=== PATIENT | female | born 1990 | race Caucasian/White ===

== ENCOUNTER 2016-07-15 11:36 | Outpatient (CLI) | payer BC ==
[2016-07-15 12:03] LABS: APPEARANCE,URINE SLIGHTLY-CLOUDY; BILIRUBIN,URINE NEGATIVE (NEGATIVE); GLUCOSE, URINE NEGATIVE (NEGATIVE); KETONES,URINE TRACE mg/dL (NEGATIVE); LEUKOCYTE ESTERASE,URINE NEGATIVE (NEGATIVE); NITRITE,URINE NEGATIVE (NEGATIVE); PROTEIN,URINE NEGATIVE (NEGATIVE); URINE SPECIFIC GRAVITY 1.023; UROBILINOGEN,URINE NEGATIVE mg/dL (<2.0)
[2016-07-15 12:06] LABS: AMNISURE (ROM) NEGATIVE (NEGATIVE)
[2016-07-15 12:16] LABS: URINE BARBITURATES SCREEN NEGATIVE; URINE METHADONE SCREEN NEGATIVE; URINE OPIATES LOW NEGATIVE; URINE PHENCYCLIDINE SCREEN NEGATIVE
--- NOTE | 2016-07-21 11:59 | Antepartum Discharge Summary ---
Antepartum DC Datetime Report Generated by CPN: 07/21/2016 11:58 DIET/ACTIVITY/RESTRICTIONS Diet: Regular (07/15/2016 12:53:BRAYDON Egan) TEACHING/INSTRUCTIONS/REFERRALS Instructions Understood: Patient Verbalized Understanding; Support Person Verbalized Understanding (07/15/2016 12:53:BRAYDON Egan) Referrals: None (07/15/2016 12:53:BRAYDON Egan) Educational Materials- Other: Care notes reviewed for dehydration (07/15/2016 12:53:Alda Camp, RNC) DISCHARGE INFORMATION Discharge Date/Time: 07/15/2016 12:53 (07/15/2016 12:53:Alda Camp, RNC) Discharged To: Home (07/15/2016 12:53:Alda Camp, RNC) Discharge Provider Name: Cece Shipman CNM (07/15/2016 12:53:Alda Camp, RNC) Accompanied By: FOB (07/15/2016 12:53:Alda Camp, RNC) Discharge Method: Ambulatory (07/15/2016 12:53:Alda Camp, RNC) Condition: Stable (07/15/2016 12:53:Alda Camp, RNC) FOLLOW UP INFORMATION Follow Up With: [facility] (07/15/2016 12:53:Alda Camp, RNC) Follow Up On: As Scheduled (07/15/2016 12:53:Alda Camp, RNC) Follow Up Phone Number: [facility] - (07/15/2016 12:53:Alda Camp, RNC) GENERAL INSTR-CALL PROVIDER IF: Pressure: Pressure in your vagina or lower abdomen that may feel like the baby is pushing down (07/15/2016 12:53:BRAYDON Egan) Period Like Cramps: Period-like cramps or low dull backache that may come and go (07/15/2016 12:53:BRAYDON Egan) Cramps/Diarrhea: Abdominal cramps that may be accompanied by diarrhea (07/15/2016 12:53:BRAYDON Egan) Gush of Fluid/Blood: Gush of fluid or blood from your vagina (it is normal to have spotting after vaginal exam or intercourse) (07/15/2016 12:53:BRAYDON Egan) Vaginal Discharge: Change in the type or amount of vaginal discharge (07/15/2016 12:53:BRAYDON Egan) Temperature: Temperature greater than 100.0(F) orally (07/15/2016 12:53:BRAYDON Egan)
--- NOTE | 2016-07-21 12:37 | L&D Flow Sheet ---
LD Flowsheet Datetime Report Generated by CPN: 07/21/2016 12:37 Datetime: 07/15/2016 12:48 Pain Pain Scale: 0 (Alda Camp, RNC) Pain Presence: None/Denies (Alda Camp, RNC) Pain Type: N/A (Alda Camp, RNC) Pain Assessment Comments: denies pain on discharge (Alda Camp, RNC) LaborFlag: Labor (QS system process) Datetime: 07/15/2016 12:33 Patient Care Patient Care Comments: EFM off will discharge to home after po hydration is complete (Alda Camp, RNC) Datetime: 07/15/2016 12:30 Contraction Comments: sitting up and eating/drinking denies uterine cramping or contractions. (Alda Camp, RNC) Datetime: 07/15/2016 12:28 NBP Sys/Mabel/Mean (mmHg): 106 (QS system process) : 62 (QS system process) : 77 (QS system process) Pulse: 95 (QS system process) Respirations: 20 (Alda [place], RN) Temperature (F): 98.2 ([facility], [facility]) Temperature (C): 36.8 (QS system process) LaborFlag: Labor (QS system process) Datetime: 07/15/2016 12:27 Teaching Instructional Method: Verbal; Patient Instructed; Verbalized Understanding ([facility], [facility]) Related: Nutrition; Hydration ([facility]) Teaching Comments: Reviewed importance of adequate hydration and nutrition. Instructed to drink a minimum of 3 [place] pitchers of water using her urine color as a quide to increase po intake. Discussed importance of frequent small healthy meals every three to four hours up to 6 daily. Denied questions or concerns , verbalized understanding (Alda Camp, RNC) Datetime: 07/15/2016 12:22 Uterine Activity Monitor Mode: External (Alda Camp, RNC) Frequency (min): none (Alda Camp, RNC) Resting Tone (Palpate): Relaxed (Alda Camp, RNC) Communication Communication Comments: P Umberto CNM on unit given verbal report of arrival, complaint of leaking , UA results showing spec gravity 1.023 with trace ketones. Plan discussed and orders received to for discharge after pt drinks one [place] pitcher of water and finishes her popsicle. (Alda Camp, RNC) Datetime: 07/15/2016 12:18 Patient Care Patient Care Comments: sitting up to drink (Alda Camp, RNC) Datetime: 07/15/2016 12:04 Frequency (min): denies (Alda Camp, RNC) Resting Tone (Palpate): Relaxed (Annotations: Abdomen soft and nontender) (Alda Camp, RNC) Pain Pain Scale: 0 (Alda Camp, RNC) Pain Presence: None/Denies (Alda Camp, RNC) Pain Type: N/A (Alda Camp, RNC) Pain Assessment Comments: denies pain on arrival (Alda Camp, RNC) Vaginal Exam Exam by: Had cervical length at office today prior to arrival (Alda Camp, RNC) Membrane Status: Intact (Alda Camp, RNC) Vaginal Bleeding: None (Alda Camp, RNC) Maternal Assessment Level of Consciousness: Fully Conscious (Alda Camp, RNC) DTR's/Clonus: DTRs 2+; No Clonus (Alda Camp, RNC) Headache: Denies (Alda Camp, RNC) Breath Sounds, Left: Clear and Equal (Alda Camp, RNC) Breath Sounds, Right: Clear and Equal (Alda Camp, RNC) Nausea/Vomiting: Denies (Alda Camp, RNC) RUQ Epigastric Pain: Denies (Alda Camp, RNC) LaborFlag: Labor (QS system process) Datetime: 07/15/2016 12:00 Comments: continuous tracing discontinued secondary to extreme prematurity per policy. Continuous toco placed and remains (Alda Camp, RNC) Datetime: 07/15/2016 11:58 NBP Sys/Mabel/Mean (mmHg): 112 (QS system process) : 65 (QS system process) : 82 (QS system process) Pulse: 105 (QS system process) Assessment A Monitor Mode: External US; Auscultation (Alda Camp, RNC) FHR Baseline Rate : 150 (Alda Camp, RNC) LaborFlag: Labor (QS system process) Datetime: 07/15/2016 11:57 Teaching Instructional Method: Demo; Verbal; Patient Instructed; Family/Support Person Instructed; Verbalized Understanding (Alda Camp, RNC) Plan of Care: Plan of Care Discussed (Alda Camp, RNC) Unit Routine: [place] to Room; Call Mejia; Bed (Alda Camp, RNC) Related: Hydration (Alda Camp, RNC) Teaching Comments: POC for labor check and amnisure process and technique reviewed. (Alda Camp, RNC) Datetime: 07/15/2016 11:56 Patient Care Patient Care Comments: amnisure collected and sent. No obvious vaginal leaking noted (Alda Camp, RNC) Datetime: 07/15/2016 11:40 Vital Signs Stage of : Labor (Alda [place], [facility])
--- NOTE | 2016-07-21 12:37 | L&D General Admission ---
General Admit Datetime Report Generated by CPN: 07/21/2016 12:37 INFORMATION Patient Age: 25 (07/15/2016 11:36:QS system process) EDC: 10/20/2016 00:00 (07/15/2016 11:55:BRAYDON Egan) : 2 (07/15/2016 11:55:BRAYDON Egan) Para: 1 (07/15/2016 11:55:BRAYDON Egan) Term: 0 (07/15/2016 11:55:BRAYDON Egan) : 1 (07/15/2016 11:55:BRAYDON Egan) Spontaneous Abortions: 0 (07/15/2016 11:55:BRAYDON Egan) Induced Abortions: 0 (07/15/2016 11:55:BRAYDON Egan) Livin (07/15/2016 11:55:BRAYDON Egan) Cesareans: 0 (07/15/2016 11:55:BRAYDON Egan) VBACs: 0 (07/15/2016 11:55:BRAYDON Egan) Ectopic: 0 (07/15/2016 11:55:Alda Kenton [facility]) Multiple Births: 0 (07/15/2016 11:55:Alda Kenton [facility]) Baby, Number in Womb: 1 (07/15/2016 11:55:Alda Pulido [facility]) CARE Primary Education Program Associate: [facility] (07/15/2016 11:55:Alda Pulido [facility]) Month of 1st Visit: April (07/15/2016 11:55:Alda Pulido [facility]) Adequate Care: Yes (07/15/2016 11:55:Alda Kenton [facility]) Prepregnancy Weight (lb): 202 (07/15/2016 11:55:Alda Pulido [facility]) Prepregnancy Weight (kg): 91.8 (07/15/2016 11:55:QS system process) Height (in): 61 (07/15/2016 11:54:QS system process) ALLERGIES Medication Allergy: No (07/15/2016 11:55:Alda Pulido RNC) Medication Allergies: No Known Allergies (07/15/2016) (07/15/2016 11:54:QS system process) Medication Allergies: No Known Allergies (12/16/2014) (07/15/2016 11:36:QS system process) Latex Allergy: No Latex Allergies (07/15/2016 11:55:Alda Camp, RNC) COMMUNICATION Primary Language: Dutch (07/15/2016 11:55:Alda Pulido, RNC) Medical Tx Preferred Language: Dutch (07/15/2016 11:55:Alda Camp, RNC) Communication Barrier(s): None (07/15/2016 11:55:Alda Camp, RNC) DEMOGRAPHICS Address: [address] [place] [id number] (07/15/2016 11:36:QS system process) Zipcode: [address] (07/15/2016 11:36:QS system process) Home (07/15/2016 11:36:QS system process) SSN: [id number] (07/15/2016 11:36:QS system process) Next of Kin Name: ZANDER UNGER (07/15/2016 11:36:QS system process) Next of Kin (07/15/2016 11:36:QS system process) Next of Kin Relationship: OR (07/15/2016 11:36:QS system process) Date of : 1990 (07/15/2016 11:36:QS system process) Marital Status: Single (07/15/2016 11:36:QS system process) Sex: Female (07/15/2016 11:36:QS system process) Occupation: Other (07/15/2016 11:55:Alda Pulido RN) 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 [id number] (07/15/2016 11:55:BRAYDON Egan) Marijuana: No (07/15/2016 11:55:BRAYDON Egan) Cocaine: No (07/15/2016 11:55:Alda Camp, [facility]) Other Illicit Drugs: No (07/15/2016 11:55:[facility], [facility]) VACCINE HISTORY Influenza Vaccine: No (07/15/2016 11:55:Alda Camp, [facility]) Pneumococcal Vaccine: No (07/15/2016 11:55:[facility], [facility]) Tetanus Vaccine: No (07/15/2016 11:55:[facility], [facility]) Tdap Vaccine: No (07/15/2016 11:55:[facility], [facility]) Hepatitis B Vaccine: Yes (07/15/2016 11:55:[facility], [facility]) Hepatitis B Vaccine Date : middle school (07/15/2016 11:55:[facility], [facility]) Rake Operator: [facility] (07/15/2016 11:55:[facility], [facility]) Feeding Preference: Formula (07/15/2016 11:55:[facility], [facility]) Circumcision: Yes (07/15/2016 11:55:[facility]) Classes Attended: No (07/15/2016 11:55:BRAYDON Egan) Tubal Ligation: No (07/15/2016 11:55:BRAYDON Egan) Tubal Authorization Signed: N/A (07/15/2016 11:55:BRAYDON Egan) Consent: N/A (07/15/2016 11:55:BRAYDON Egan) Consent Signed: N/A (07/15/2016 11:55:BRAYDON Egan) Pain Management Plans: Natural (07/15/2016 11:55:BRAYDON Egan) Plans for Labor and Delivery: None (07/15/2016 11:55:BRAYDON Egan) Support Person: Zander Unger (07/15/2016 11:55:BRAYDON Egan) Support Person Relationship: Significant Other (07/15/2016 11:55:BRAYDON Egan) Other Relationship: FOB (07/15/2016 11:55:BRAYDON Egan) Cultural/Spritual Practice: No (07/15/2016 11:55:BRAYDON Egan) Spir/Cult Dietary Needs: No (07/15/2016 11:55:BRAYDON Egan) LIVING SITUATION/DISCHARGE PLAN Living Arrangements: Mobile Home (07/15/2016 11:55:BRAYDON Egan) Adequate Access to:: Electric; Heat; Refrigeration; Plumbing/Running water; Phone; Transportation (07/15/2016 11:55:BRAYDON Egan) WIC Program: Yes (07/15/2016 11:55:BRAYDON Egan) Discharge Comb Machine Operator Person: Zander Unger (07/15/2016 11:55:BRAYDON Egan) Person to Help after Discharge: Zander Unger (07/15/2016 11:55:BRAYDON Egan) Currently Using Commun Resources: Yes (07/15/2016 11:55:BRAYDON Egan) Specify Current Resource Used: medicaid and wic (07/15/2016 11:55:BRAYDON Egan) Outside Agency/Charter Pilot: Yes (07/15/2016 11:55:BRAYDON Egan) Car Seat for Discharge: Yes (07/15/2016 11:55:BRAYDON Egan) Adoption Requested: No (07/15/2016 11:55:BRAYDON Egan) Pt Contact w/ Post : N/A (07/15/2016 11:55:BRAYDON Egan) LABS Blood Type: A Negative (07/15/2016 11:55:Alda Pulido [facility]) Antibody Screen: negative (07/15/2016 11:55:Alda Pulido Ivan) RPR/VDRL: Nonreactive (07/15/2016 11:55:Alda Pulido [facility]) HIV Exposure Test: Negative (07/15/2016 11:55:Alda Pulido [facility]) Rubella: Immune (07/15/2016 11:55:Alda Pulido [facility]) OB/PREVIOUS HISTORY Previous Procedures: Ultrasound (07/15/2016 11:55:BRAYDON Egan) Current Procedures: Ultrasound (07/15/2016 11:55:BRAYDON Egan) History of Previous : No (07/15/2016 11:55:BRAYDON Egan) History of Gestational Diabetes: Yes (07/15/2016 11:55:BRAYDON Egan) History of PIH: No (07/15/2016 11:55:BRAYDON Egan) History of Incompetent Cervix: No (07/15/2016 11:55:BRAYDON Egan) History of Placenta Previa/Abrup: No (07/15/2016 11:55:BRAYDON Egan) History of Macrosomia: No (07/15/2016 11:55:BRAYDON Egan) History of IUGR: No (07/15/2016 11:55:BRAYDON Egan) History of Hemorrhage: No (07/15/2016 11:55:BRAYDON Egan) History of Loss/Stillborn: No (07/15/2016 11:55:BRAYDON Egan) History of : No (07/15/2016 11:55:BRAYDON Egan) History of D (Rh) Sensitization: No (07/15/2016 11:55:BRAYDON Egan) History Recurrent Loss/Stillborn: No (07/15/2016 11:55:BRAYDON Egan) History Depression/PP Depression: No (07/15/2016 11:55:BRAYDON Egan) History of Uterine Anomaly/RAIN: No (07/15/2016 11:55:BRAYDON Egan) History of Infertility: No (07/15/2016 11:55:BRAYDON Egan) History of ART Treatment: No (07/15/2016 11:55:BRAYDON Egan) History of RAIN: No (07/15/2016 11:55:BRAYDON Egan) Comments Obstetrical History: G1- delivered 35 weeks GDM G2- GDM (07/15/2016 11:55:BRAYDON Egan) MEDICAL HISTORY Med Hx Diabetes: No (07/15/2016 11:55:BRAYDON Egan) Diabetes Type: Gestational Diabetes (07/15/2016 11:55:BRAYDON Egan) Med Hx Hypertension: No (07/15/2016 11:55:BRAYDON Egan) Med Hx Heart Disease: No (07/15/2016 11:55:BRAYDON Egan) Med Hx Autoimmune Disorder: No (07/15/2016 11:55:BRAYDON Egan) Med Hx Kidney Disease/UTI: No (07/15/2016 11:55:BRAYDON Egan) Med Hx Neurologic/Epilepsy: No (07/15/2016 11:55:BRAYDON Egan) Med Hx Psychiatric Disorders: Yes (07/15/2016 11:55:BRAYDON Egan) Med Hx Hepatitis/Liver Disease: No (07/15/2016 11:55:BRAYDON Egan) Med Hx Varicosities/Phlebitis: No (07/15/2016 11:55:BRAYDON Egan) Med Hx Thyroid Dysfunction: No (07/15/2016 11:55:BRAYDON Egan) Med Hx Trauma/Violence: No (07/15/2016 11:55:BRAYDON Egan) Med Hx Blood Transfusion: No (07/15/2016 11:55:BRAYDON Egan) Med Hx Pulmonary (Asthma,TB): Yes (07/15/2016 11:55:BRAYDON Egan) Med Hx Breast: No (07/15/2016 11:55:BRAYDON Egan) Med Hx SUPPLY CATALOGUER Surgery: No (07/15/2016 11:55:BRAYDON Egan) Med Hx Hospitalization/Surgery: Yes (07/15/2016 11:55:BRAYDON Egan) Med Hx Anesthetic Complications: No (07/15/2016 11:55:BRAYDON Egan) Med Hx Abnormal Pap Smear: No (07/15/2016 11:55:BRAYDON Egan) Other Medical Diseases: No (07/15/2016 11:55:BRAYDON Egan) Med Hx Significant Family Hx: No (07/15/2016 11:55:BRAYDON Egan) Details of Med/Surg Hx: GDM both pregnancies, Childbirth 2014, childhood asthma, Buspar started on 06-17-16 for anxiety (07/15/2016 11:55:BRAYDON Egan) INFECTIOUS HISTORY Inf Hx Gonorrhea: No (07/15/2016 11:55:BRAYDON Egan) Inf Hx Chlamydia: No (07/15/2016 11:55:BRAYDON Egan) Inf Hx Syphilis: No (07/15/2016 11:55:BRAYDON Egan) Inf Hx HIV/AIDS: No (07/15/2016 11:55:BRAYDON Egan) Inf Hx Human Papilloma Virus: No (07/15/2016 11:55:BRAYDON Egan) Inf Hx Pt/Partner Genital Herpes: No (07/15/2016 11:55:BRAYDON Egan) Inf Hx Tuberculosis/Exposure: No (07/15/2016 11:55:BRAYDON Egan) Inf Hx Hepatitis B,C: No (07/15/2016 11:55:BRAYDON Egan) Inf Hx Rash or Viral Illness: No (07/15/2016 11:55:BRAYDON Egan) GENETIC HISTORY Gen Hx Age >=35 at JAMES: No (07/15/2016 11:55:BRAYDON Egan) Gen Hx Thalassemia: No (07/15/2016 11:55:Alda Pulido Ivan) Gen Hx Congenital Heart Defect: No (07/15/2016 11:55:BRAYDON Egan) Gen Hx Neural Tube Defect: No (07/15/2016 11:55:BRAYDON Egan) Gen Hx Down's Syndrome: No (07/15/2016 11:55:BRAYDON Egan) Gen Hx Gordon-Sachs: No (07/15/2016 11:55:BRAYDON Egan) Gen Hx Niesha: No (07/15/2016 11:55:Alda Pulido [facility]) Gen Hx Familial Dysautonomia: No (07/15/2016 11:55:BRAYDON Egan) Gen Hx Sickle Cell Disease/Trait: No (07/15/2016 11:55:BRAYDON Egan) Gen Hx Hemophilia/Blood Disorder: No (07/15/2016 11:55:BRAYDON Egan) Gen Hx Muscular Dystrophy: No (07/15/2016 11:55:BRADYON Egan) Gen Hx Cystic Fibrosis: No (07/15/2016 11:55:BRAYDON Egan) Gen Hx [place] Chorea: No (07/15/2016 11:55:BRAYDON Egan) Gen Hx Mental Retardation/Autism: No (07/15/2016 11:55:BRAYDON Egan) Gen Hx Tested for Fragile X: No (07/15/2016 11:55:BRAYDON Egan) Gen Hx Other Inher/Chromosomal: No (07/15/2016 11:55:BRAYDON Egan) Gen Hx Maternal Metabolic DO: No (07/15/2016 11:55:BRAYDON Egan) Gen Hx Pt Father or FOB Defect: No (07/15/2016 11:55:BRAYDON Egan) Gen Hx Other Genetic History: No (07/15/2016 11:55:BRAYDON Egan) Gen Hx Drugs/Meds since LMP: No (07/15/2016 11:55:BRAYDON Egan)
--- NOTE | 2016-07-21 12:38 | L&D Discharge Summary ---
OB Discharge Summary Datetime Report Generated by CPN: 07/21/2016 12:38 DISCHARGE DIAGNOSIS Diagnosis/Symptoms: Other Diagnoses/Symptoms Other: iup 26+1 intact membranes Treatment/Procedures Other: amnisure, po hydration Gestation: 26.1 Number of Babies in Womb: 1 Parity: 1 DIET/ACTIVITY/RESTRICTIONS Diet: Regular TEACHING/INSTRUCTIONS/REFERRALS Instructions Understood: Patient Verbalized Understanding; Support Person Verbalized Understanding Referrals: None Educational Materials- Other: Care notes reviewed for dehydration DISCHARGE INFORMATION Discharge Date/Time: 07/15/2016 12:53 Discharged To: Home Discharge Provider Name: P Shipman CNM Accompanied By: FOB Discharge Method: Ambulatory Condition: Stable FOLLOW UP INFORMATION Follow Up With: [facility] Follow Up On: As Scheduled Follow Up Phone Number: [facility] - GENERAL INSTR-CALL PROVIDER IF: Pressure: Pressure in your vagina or lower abdomen that may feel like the baby is pushing down Period Like Cramps: Period-like cramps or low dull backache that may come and go Cramps/Diarrhea: Abdominal cramps that may be accompanied by diarrhea Gush of Fluid/Blood: Gush of fluid or blood from your vagina (it is normal to have spotting after vaginal exam or intercourse) Vaginal Discharge: Change in the type or amount of vaginal discharge Temperature: Temperature greater than 100.0(F) orally
--- NOTE | 2016-07-21 12:38 | L&D Admission Assessment ---
LD ADM ASMT Datetime Report Generated by CPN: 07/21/2016 12:37 PATIENT ASSESSMENT Assessment Type: Triage (07/15/2016 12:04:Alda [place], RNC) WEIGHT Weight (lb): 207 (07/15/2016 11:54:QS system process) Weight (kg): 94.1 (07/15/2016 11:54:QS system process) Total Wt Gain (lb): 5 (07/15/2016 11:55:QS system process) Wt Gain (kg): 2.2 (07/15/2016 11:55:QS system process) PAIN Pain Scale: 0 (07/15/2016 12:48:Alda Camp, RNC) Pain Scale: 0 (07/15/2016 12:04:Alda Camp, RNC) Pain Presence: None/Denies (07/15/2016 12:48:Alda Camp, RNC) Pain Presence: None/Denies (07/15/2016 12:04:Alda Camp, RNC) Pain Type: N/A (07/15/2016 12:48:Alda Camp, RNC) Pain Type: N/A (07/15/2016 12:04:Alda Camp, RNC) Pain Comments: denies pain on discharge (07/15/2016 12:48:Alda Camp, RNC) Pain Comments: denies pain on arrival (07/15/2016 12:04:Alda Camp, RNC) CONTRACTIONS Frequency (min): none (07/15/2016 12:22:Alda Camp, RNC) Frequency (min): denies (07/15/2016 12:04:Alda Pulido RNC) Resting Tone [employer]: Relaxed (07/15/2016 12:22:Alda Pulido RNIvan) Resting Tone [employer]: Relaxed (Annotations: Abdomen soft and nontender) (07/15/2016 12:04:Alda Pulido RNC) Contraction Comments: sitting up and eating/drinking denies uterine cramping or contractions. (07/15/2016 12:30:Alda Pulido RNC) VAGINAL EXAM Membranes Status: Intact (07/15/2016 12:04:Alda Pulido, RNC) NEURO Level of Consciousness: Fully Conscious (07/15/2016 12:04:BRAYDON Egan) DTR's/Clonus: DTRs 2+; No Clonus (07/15/2016 12:04:Alda Pulido RNIvan) Headache: Denies (07/15/2016 12:04:Alda Pulido RNIvan) Dizziness: No (07/15/2016 12:04:BRAYDON Egan) Blurred Vision: No (07/15/2016 12:04:Alda Camp, RNC) Extremity Numbness/Tingling : None (07/15/2016 12:04:Alda Camp, RNC) Extremity Movement: Full Range of Motion (07/15/2016 12:04:Alda Camp, RNC) CARDIOVASCULAR Nailbeds: [place] (07/15/2016 12:04:Alda Camp, RNC) Capillary Refill: Less than 3 Seconds (07/15/2016 12:04:Alda Camp, RNC) Lower Extremities Edema: None (07/15/2016 12:04:Alda Camp, RNC) Lower Extremities Edema Degree: None (07/15/2016 12:04:Alda Camp, RNC) Upper Extremities Edema: None (07/15/2016 12:04:Alda Camp, RNC) Upper Extremities Edema Degree: None (07/15/2016 12:04:Alda Camp, RNC) Facial Edema: None (07/15/2016 12:04:Alda Camp, RNC) Angel's Sign Left Leg: Negative (07/15/2016 12:04:Alda Camp, RNC) Angel's Sign Right Leg: Negative (07/15/2016 12:04:Alda Camp, RNC) DVT RISK ASSESSMENT DVT Risk Age: Age less than 41 years (07/15/2016 12:04:Alda Camp, RNC) RESPIRATORY Respiratory Effort: Unlabored; Regular Rhythm; Equal Expansion (07/15/2016 12:04:Alda Camp, RNC) Breath Sounds, Left: Clear and Equal (07/15/2016 12:04:Alda Camp, RNC) Breath Sounds, Right: Clear and Equal (07/15/2016 12:04:Alda Camp, RNC) Cough Productivity: None (07/15/2016 12:04:Alda Camp, RNC) GASTROINTESTINAL Nausea/Vomiting: Denies (07/15/2016 12:04:Alda Camp, RNC) Bowel Sounds: Normoactive; All Quadrants (07/15/2016 12:04:Alda Camp, RNC) RUQ Epigastric Pain: Denies (07/15/2016 12:04:Alda Camp, RNC) GENITOURINARY Bladder: Nondistended (07/15/2016 12:04:Alda Camp, RNC) Frequency of Urination: No (07/15/2016 12:04:Alda Camp, RNC) Urination Burning: No (07/15/2016 12:04:Alda Camp, RNC) CVA Tenderness: No (07/15/2016 12:04:Alda Camp, RNC) Vaginal Bleeding: None (07/15/2016 12:04:Alda Camp, RNC) Vaginal Discharge Color: N/A (07/15/2016 12:04:Alda Camp, RNC) INTEGUMENTARY Skin Color: Normal for Race (07/15/2016 12:04:Alda Camp, RNC) Skin Temperature: Warm (07/15/2016 12:04:Alda Camp, RNC) Skin Moisture: Dry (07/15/2016 12:04:Alda Camp, RNC) ANGELIA SKIN ASSESSMENT Angelia Scale Sensory Perception: No Impairment- Responds to verbal commands. Has no sensory deficit which would limit ability to feel or voice pain or discomfort (07/15/2016 12:04:BRAYDON Egan) Angelia Scale Moisture: Rarely Moist- Skin is usually dry. Linen only requires changing at routine intervals (07/15/2016 12:04:BRAYDON Egan) Angelia Scale Activity: Walks Frequently- Walks outside the room at least twice a day and inside room at least every 2 hours during the day. (07/15/2016 12:04:BRAYDON Egan) Angelia Scale Mobility: No Limitations- Makes major and frequent changes in position without assistance (07/15/2016 12:04:BRAYDON Egan) Angelia Scale Nutrition: Excellent- Eats most of every meal. Never refuses a meal. Usually eats a total of 4 or more servings of meat and dairy products. Occasionally eats between meals. Does not require supplementation (07/15/2016 12:04:BRAYDON Egan) Angelia Scale Friction and Shear: No Apparent Problem- Moves in bed and in chair independently and has sufficient muscle strength to lift up completely during move. Maintains good position in bed or chair at all times (07/15/2016 12:04:BRAYDON Egan) Angelia Scale Total: 23 (07/15/2016 12:04:QS system process) Angelia Scale Risk: No Risk of Pressure Ulcer Noted at this Time (07/15/2016 12:04:QS system process) SAFETY Call Mejia Within Reach: Yes (07/15/2016 12:04:Alda Camp, RN) Side Rails Up: Yes (07/15/2016 12:04:Adla Camp, RN) Bed Wheels Locked: Yes (07/15/2016 12:04:Alda Camp, RN) Arm Bands Present: Yes (07/15/2016 12:04:Alda Camp, RNC) BABY A FHR Baseline Rate (bpm) Baby A: 150 (07/15/2016 11:58:Alda Camp, [facility])
--- NOTE | 2016-07-21 14:58 | L&D Discharge Summary ---
OB Discharge Summary Datetime Report Generated by CPN: 07/21/2016 14:58 DISCHARGE DIAGNOSIS Diagnosis/Symptoms: Other Diagnoses/Symptoms Other: iup 26+1 intact membranes Treatment/Procedures Other: amnisure, po hydration Gestation: 26.1 Number of Babies in Womb: 1 Parity: 1 DIET/ACTIVITY/RESTRICTIONS Diet: Regular TEACHING/INSTRUCTIONS/REFERRALS Instructions Understood: Patient Verbalized Understanding; Support Person Verbalized Understanding Referrals: None Educational Materials- Other: Care notes reviewed for dehydration DISCHARGE INFORMATION Discharge Date/Time: 07/15/2016 12:53 Discharged To: Home Discharge Provider Name: P Shipman CNM Accompanied By: FOB Discharge Method: Ambulatory Condition: Stable FOLLOW UP INFORMATION Follow Up With: [facility] Follow Up On: As Scheduled Follow Up Phone Number: [facility] - GENERAL INSTR-CALL PROVIDER IF: Pressure: Pressure in your vagina or lower abdomen that may feel like the baby is pushing down Period Like Cramps: Period-like cramps or low dull backache that may come and go Cramps/Diarrhea: Abdominal cramps that may be accompanied by diarrhea Gush of Fluid/Blood: Gush of fluid or blood from your vagina (it is normal to have spotting after vaginal exam or intercourse) Vaginal Discharge: Change in the type or amount of vaginal discharge Temperature: Temperature greater than 100.0(F) orally
== END 2016-07-15 12:53 | disposition home or self-care (01) ==
LOC: LC 11:36
PROVIDERS: ATTEND Obstetrics & Gynecology
PROC: 4A1HXCZ Monitoring of Products of Conception, Cardiac Rate, External Approach (ICD-10-PCS; principal; 2016-07-15)
DX: Z36 Encounter for antenatal screening of mother (principal); Z3A.26 26 weeks gestation of pregnancy
CPT/HCPCS: 80307; 81001; 84112

== ENCOUNTER 2016-10-09 04:08 | Inpatient (IN) | payer BC, MEDICAID ==
[2016-10-09 04:57] LABS: AMNISURE (ROM) POSITIVE (NEGATIVE)
[2016-10-09] MEDS ORDERED: RINGERS SOLUTION,LACTATED 1,000 ML IV ONE (04:58)
[2016-10-09] MEDS ORDERED: RINGERS SOLUTION,LACTATED 1,000 ML IV PRN ×2 (04:58→08:50)
[2016-10-09 05:03] LABS: APPEARANCE,URINE SLIGHTLY-CLOUDY; BILIRUBIN,URINE NEGATIVE (NEGATIVE); GLUCOSE, URINE NEGATIVE (NEGATIVE); KETONES,URINE NEGATIVE (NEGATIVE); LEUKOCYTE ESTERASE,URINE NEGATIVE (NEGATIVE); NITRITE,URINE NEGATIVE (NEGATIVE); PROTEIN,URINE 30 mg/dL (NEGATIVE); UROBILINOGEN,URINE NEGATIVE mg/dL (<2.0)
[2016-10-09] MEDS ORDERED: MISOPROSTOL 0.1 MG TABLET PV ONE (05:12)
[2016-10-09 05:29] LABS: URINE BARBITURATES SCREEN NEGATIVE; URINE METHADONE SCREEN NEGATIVE; URINE OPIATES LOW NEGATIVE; URINE PHENCYCLIDINE SCREEN NEGATIVE
[2016-10-09 05:39] LABS: ABSOLUTE EOSINOPHILS # (AUTO) 0.1 10^3/uL (0.0-0.6); ABSOLUTE LYMPHOCYTES (AUTO) 2.8 10^3/uL (0.5-4.7); ABSOLUTE MONOCYTES (AUTO) 0.4 10^3/uL (0.1-1.4); ABSOLUTE NEUT (AUTO) 4.1 10^3/uL (1.7-8.2); BASOPHILS % (AUTO) 0.4 % (0-2); EOSINOPHILS % (AUTO) 1.1 % (0-6); HEMATOCRIT 39.5 % (36.0-47.0); HGB HCT DIFFERENCE -0.5; LYMPHOCYTES % (AUTO) 37.5 % (13-45); MEAN CORPUSCULAR VOLUME 85 fl (80-97); MONOCYTES % (AUTO) 5.9 % (3-13); RED BLOOD COUNT 4.64 10^6/uL (3.72-5.28); RED CELL DISTRIBUTION WIDTH 14.8 % (11.5-14.0); SEGMENTED NEUTROPHILS % (AUTO) 55.1 % (42-78); WHITE BLOOD COUNT 7.5 10^3/uL (4.0-10.5)
[2016-10-09 05:53] LABS: ALANINE AMINOTRANSFERASE 44 U/L (9-52); ALBUMIN 3.2 g/dL (3.5-5.0); ALKALINE PHOSPHATASE 167 U/L (38-126); ANION GAP 11 (5-19); ASPARTATE AMINO TRANSFERASE 28 U/L (14-36); BILIRUBIN,DIRECT 0.3 mg/dL (0.0-0.4); BILIRUBIN,TOTAL 0.8 mg/dL (0.2-1.3); BLOOD UREA NITROGEN 11 mg/dL (7-20); CARBON DIOXIDE 18 mmol/L (22-30); CHLORIDE 104 mmol/L (98-107); CREATININE RESULT 0.73 mg/dL (0.52-1.25); GLUCOSE 91 mg/dL (75-110); POTASSIUM 4.2 mmol/L (3.6-5.0); SODIUM 133.2 mmol/L (137-145); TOTAL PROTEIN 6.3 g/dL (6.3-8.2)
--- NOTE | 2016-10-09 08:47 | L&D Progress Notes ---
PROGRESS NOTES Datetime Report Generated by CPN: 10/09/2016 08:47 PROGRESS NOTE Impression: Normal Progression of Labor Procedures: Sterile Vag Exam Plan: Augmentation Plan Other: IV pain medication Informed Consent Obtained: Vaginal Delivery; Induction of Labor; Risks, Benefits and Alternatives Discussed Vital Signs : Reviewed Vital Signs Comments: last BP elevated-pain with increased pain and breathing with contractions-requesting pain meds Comment: S: pt. requesting pain medication at this time reports painful contractions O: as stated above A: 38w3d SROM in labor-stable P: IV pain meds as requested, will augment with pitocin as needed. Continue to monitor BP, PIH labs prn. Pt. and asked questions and verbalized understanding. VAGINAL EXAM Dilatation: 4 Dilatation: 1 Effacement: 80 Effacement: 0 Station: -2 Station: -3 Contractions: irregular MEMBRANES Membranes: Ruptured Membranes: Ruptured Amniotic Fluid Color: Clear Amniotic Fluid Color: Clear FETUS A Monitoring: External US FHR Category: Category I : 38.3 Presentation: Vertex SIGNATURE SIGNATURE: [id number] Assignment: Maryjo Krishnan MD Signature: with User ID: Steven : with User ID: Steven
[2016-10-09] MEDS ORDERED: RINGERS SOLUTION,LACTATED 300 ML IV ONE (08:50)
[2016-10-09] MEDS ORDERED: PROMETHAZINE HCL INJ 25 MG/1 ML VIAL IV ONE (08:53)
[2016-10-09] MEDS ORDERED: NALBUPHINE HCL INJ 10 MG/1 ML AMPULE INJ ONE (08:53)
[2016-10-09] MEDS ORDERED: NALBUPHINE HCL INJ 10 MG/1 ML AMPULE ONE (09:05)
[2016-10-09] MEDS ORDERED: PROMETHAZINE HCL INJ 25 MG/1 ML VIAL ONE (09:05)
[2016-10-09] MEDS ORDERED: OXYTOCIN/NORMAL SALINE 1,000 ML IV PRN ×2 (09:30→19:47)
[2016-10-09] MEDS ORDERED: MISOPROSTOL 0.2 MG TABLET ONE ×2 (12:13→20:00)
[2016-10-09] MEDS ORDERED: LIDOCAINE 1% INJ-PF (10 MG/ML) 30 ML SDV ONE (12:14)
[2016-10-09] MEDS ORDERED: OXYTOCIN/NORMAL SALINE 20 UNIT/1,000 ML RTUINJ ONE (12:14)
--- NOTE | 2016-10-09 12:46 | L&D Progress Notes ---
PROGRESS NOTES Datetime Report Generated by CPN: 10/09/2016 12:46 PROGRESS NOTE Impression: Normal Progression of Labor Procedures: Sterile Vag Exam Plan: Continue Present Management; Augmentation Informed Consent Obtained: Vaginal Delivery; Risks, Benefits and Alternatives Discussed Vital Signs : Reviewed Comment: S: pt. with increased pain, considering epidural at this time O: as stated above A: SROM in labor and augmented with pit- progressing well P: continue present management and position changes, epidural prn VAGINAL EXAM Dilatation: 6 Effacement: 90 Station: -1 Contractions: 2-3 MEMBRANES Membranes: Ruptured Amniotic Fluid Color: Bloody FETUS A Monitoring: External US FHR Comments: position changes FETUS C SIGNATURE: [id number] Assignment: Maryjo Krishnan MD Signature: with User ID: [email or web address] : with User ID: [email or web address]
[2016-10-09] MEDS ORDERED: FENTANYL/BUPIVACAINE/NS/PF 200 MCG/100 ML RTUINJ EPI ONE (14:19)
[2016-10-09] MEDS ORDERED: EPHEDRINE SULFATE INJ 50 MG/1 ML AMPULE ONE (14:19)
[2016-10-09] MEDS ORDERED: BUPIVACAINE HCL 0.25 % INJ/PF (2.5 MG/1 ML) 30 ML VIAL ONE (14:19)
[2016-10-09] MEDS ORDERED: PHENYLEPHRINE HCL INJ/PF 10 MG/1 ML SDV ONE (14:19)
[2016-10-09] MEDS ORDERED: FENTANYL CITRATE INJ/PF 100 MCG/2 ML AMPUL ONE ×2 (14:19→21:08)
--- NOTE | 2016-10-09 14:51 | L&D Progress Notes ---
PROGRESS NOTES Datetime Report Generated by CPN: 10/09/2016 14:51 PROGRESS NOTE Impression: Normal Progression of Labor Procedures: Artificial ROM; Scalp Electrode; Sterile Vag Exam Plan: Continue Present Management Informed Consent Obtained: Vaginal Delivery; Risks, Benefits and Alternatives Discussed Vital Signs : Reviewed; Within Normal Limits Comment: 38+3ega admitted for labor. AROM performed and FSE placed to better monitor FHR. cvx 7-8/90/0. Clear fluid. Anticpate . Pelvis adequate for ERIBERTO. Reassuring FWB. EFW 7-8# VAGINAL EXAM Dilatation: 7 Effacement: 90 Station: 0 MEMBRANES Pooling: Positive Ferning Results: Positive Membranes: Ruptured Amniotic Fluid Color: Clear FETUS A FHR - Baseline: 150 Monitoring: External US Variability: Moderate 6-25bpm Accelerations: 15X15 Decelerations: None FHR Category: Category I FETUS C SIGNATURE: [id number] Signature: with User ID: [email or web address]
--- NOTE | 2016-10-09 16:59 | L&D Progress Notes ---
PROGRESS NOTES Datetime Report Generated by CPN: 10/09/2016 16:59 PROGRESS NOTE Impression: Normal Progression of Labor Procedures: Intrauterine Pressure Catheter; Sterile Vag Exam Plan: Continue Present Management Informed Consent Obtained: Vaginal Delivery; Risks, Benefits and Alternatives Discussed Vital Signs : Reviewed; Within Normal Limits Comment: 38+3ega. Cvx unchanged. 790/0. F[address] in [address]. IUPC placed and pitocin currently on 4. Will continue to increase pitocin to help improve contraction strength and frequency. EFW 7-8#. Anticipate . Pelvis adequate for ERIBERTO. VAGINAL EXAM Dilatation: 7 Effacement: 90 Station: 0 MEMBRANES Membranes: Ruptured Amniotic Fluid Color: Clear FETUS A FHR - Baseline: 130 Monitoring: External US Variability: Moderate 6-25bpm Accelerations: 15X15 Decelerations: None FHR Category: Category I FETUS C SIGNATURE: [id number] Signature: with User ID: [email or web address]
[2016-10-09] MEDS ORDERED: CITRIC ACID/SODIUM CITRATE ORAL SOLN 15 ML UDCUP ONE (18:17)
[2016-10-09] MEDS ORDERED: LIDOCAINE 2%/EPINEPHRINE INJ 20 ML VIAL ONE (18:18)
[2016-10-09] MEDS ORDERED: CEFAZOLIN 2 GM/D5W RTU 2 GM/50 ML RTUPB IV ONE (18:18)
--- NOTE | 2016-10-09 18:19 | L&D Progress Notes ---
PROGRESS NOTES Datetime Report Generated by CPN: 10/09/2016 18:18 PROGRESS NOTE Comment: pt with repetitive late decels. Unresponsive to position changes and unresponsive to maternal intrauterine recussitation efforts. D/w patient re: indications for Primary C/S for Non reassuring FHR tracing and repetitive Decels. OR team notified. FETUS C SIGNATURE: [id number] Signature: with User ID: [email or web address]
[2016-10-09] MEDS ORDERED: METHYLERGONOVINE MALEATE INJ/PF 0.2 MG/1 ML AMPULE ONE (18:49)
--- NOTE | 2016-10-09 19:40 | Brief Operative Note ---
BRIEF OPERATIVE REPORT DATE OF SURGERY: 10/09/16 TIME OF SURGERY: 18:40 PREOPERATIVE DIAGNOSIS: REpetitive Late DEcelerations, 38+3ega, GDM POSTOPERATIVE DIAGNOSIS: ANJEL delivered, Forehead presentation. SURGEON: MILLICENT YU FINDINGS: Normal uterus, normal tubes/ovaries, Apgars and weigth pending. Forehead presentation COMPLICATIONS: None ESTIMATED BLOOD LOSS: 600ml TISSUE REMOVED OR ALTERED: Placenta delivered intact spontaneously, not sent TECHNICAL PROCEDURE: Primary Low Transverse Section.
[2016-10-09] MEDS ORDERED: MISOPROSTOL 0.2 MG TABLET PR ONE (19:46)
[2016-10-09] MEDS ORDERED: ACETAMINOPHEN 100 ML IV PRN (19:47)
[2016-10-09] MEDS ORDERED: SIMETHICONE 80 MG TAB.CHEW PO PRN (19:47)
[2016-10-09] MEDS ORDERED: MEASLES,MUMPS&RUBELLA VACC/PF 0.5 ML VIAL SUBCUT PRN (19:47)
[2016-10-09] MEDS ORDERED: PROMETHAZINE HCL INJ 25 MG/1 ML VIAL IV PRN (19:47)
[2016-10-09] MEDS ORDERED: HYDROMORPHONE HCL INJ/PF 2 MG/ML AMPULE IV PRN (19:47)
[2016-10-09] MEDS ORDERED: ACETAMINOPHEN 325 MG TABLET PO PRN (19:47)
[2016-10-09] MEDS ORDERED: DIPH/PERTUSS(ACELL)/TETANUS VAC/PF 0.5 ML SYR (>=10YO) IM PRN (19:47)
[2016-10-09] MEDS ORDERED: OXYCODONE-ACETAMINOPHEN 5-325 MG TABLET PO PRN (19:47)
[2016-10-09] MEDS ORDERED: SODIUM BICARBONATE 8.4% INJ 50 MEQ/50 ML DISP.SYRIN ONE (21:39)
[2016-10-09] MEDS ORDERED: ACETAMINOPHEN 100 ML IV ONE (21:50)
--- NOTE | 2016-10-09 22:14 | Admission Physical ---
Datetime Report Generated by CPN: 10/09/2016 22:14 CURRENT ADMISSION Chief Complaint: Suspected Ruptured Membranes Indication for Induction: Not Applicable Admit Plan: Admit to Unit; Initiate Labor Induction Protocol ALLERGIES Medication Allergies: No Medication Allergies: No Medication Allergies: No Known Allergies (07/15/2016) Latex: Latex Allergies Latex: No Latex Allergies Food Allergies: none Environmental Allergies: none OBSTETRICAL HISTORY EDC: 10/20/2016 00:00 : 2 Para: 1 Para: 1 (Annotations: Data stored by CPN on behalf of user) Para: 1 Term: 0 : 1 SAB: 0 IAB: 0 Ectopic: 0 Livin Cesareans: 0 VBACs: 0 Multiple Births: 0 Gestational Diabetes: Yes Rh Sensitization: No Incompetent Cervix: No RAIN: No Infertility: No ART Treatment: No Uterine Anomaly: No IUGR: No Hx Previous C/S: No Macrosomia: No Hx Loss/Stillborn: No PIH: No Hx : No Placenta Previa/Abruption: No Depression/PP Depression: No PTL/PROM: No Post Hemorrhage: No Current Procedures: Ultrasound; NST Obstetrical History Comments: G1: 35.1 baby girl 5lb 2oz G2: current GDM SEE RECORDS Alcohol: No Marijuana : No Cocaine: No Other Illicit Drugs: No Cigarettes: Never Smoker. [id number] MEDICAL HISTORY Diabetes: Yes Diabetes Type: Gestational Diabetes Blood Transfusion: No Pulmonary Disease (Asthma, TB): No Breast Disease: No Hypertension: No Wheel Grinder Surgery: No Heart Disease: No Hosp/Surgery: No Autoimmune Disorder: No Anesthetic Complications: No Kidney Disease: No Abnormal Pap Smear: No Neuro/Epilepsy: No Psychiatric Disorders: No Other Medical Diseases: No Hepatitis/Liver Disease: No Significant Family History: No Varicosities/Phlebitis: No Trauma/Violence : No Thyroid Dysfunction: No Medical History Comments: Hx of bells palsy INFECTIOUS HISTORY Gonorrhea: No Genital Herpes: No Chlamydia: No Tuberculosis: No Syphilis: No Hepatitis: No HIV/AIDS Exposure: No Rash or Viral Illness: No HPV: No PHYSICAL EXAM General: Normal HEENT: Normal Neurologic: Normal Thyroid: Deferred Heart: Normal Lungs: Normal Breast: Deferred Back: Normal Abdomen: Normal Genitourinary Exam: Normal Extremities: Normal DTRs: Normal Pelvic Type: Adequate Vital Signs: Reviewed; Within Normal Limits VAGINAL EXAM Dilatation: 7 Dilatation: 7 Dilatation: 6 Dilatation: 4 Dilatation: 1 Effacement: 90 Effacement: 90 Effacement: 90 Effacement: 80 Effacement: 0 Station: 0 Station: 0 Station: -1 Station: -2 Station: -3 Contraction Comments: 2-3 Contraction Comments: irregular MEMBRANES Pooling: Positive Ferning Results: Positive Membranes: Ruptured Membranes: Ruptured Membranes: Ruptured Membranes: Ruptured Membranes: Ruptured Amniotic Fluid Color: Clear Amniotic Fluid Color: Clear Amniotic Fluid Color: Bloody Amniotic Fluid Color: Clear Amniotic Fluid Color: Clear FETUS A EGA: 38.3 Monitoring: External US FHR- Baseline: 140 Variability: Moderate 6-25bpm Accelerations: 15X15 Decelerations: None FHR Category: Category I Presentation: Vertex PLANS FOR LABOR AND DELIVERY Labor and Delivery: None Other Pain Management Plans: open to options Feeding Preference: Formula Benefit of Breast Feed Discussed: Yes Circumcision: Yes INFORMED CONSENT Informed Consent Obtained: Vaginal Delivery; Risks, Benefits and Alternatives Discussed Informed Consent Obtained: Vaginal Delivery; Risks, Benefits and Alternatives Discussed Informed Consent Obtained: Vaginal Delivery; Risks, Benefits and Alternatives Discussed Informed Consent Obtained: Vaginal Delivery; Induction of Labor; Risks, Benefits and Alternatives Discussed Signature: with User ID: [email or web address]
[2016-10-09] MEDS: KETOROLAC TROMETHAMINE INJ/PF 30 MG/1 ML SDV IV SCH (22:53)
--- NOTE | 2016-10-09 23:51 | Delivery Summary ---
Del Sum A-C Datetime Report Generated by CPN: 10/09/2016 23:51 DELIVERY PERSONNEL DELIVERY PERSONNEL: [id number] Delivery Doctor:: Maryjo Krishnan MD Anesthesiologist:: Ramila Gutierrez MD CLIP LOADING MACHINE FEEDER:: Jhoan Feng CRNA Labor and Delivery Nurse:: Sylwia Antonio RNreel slitter Nurse:: BRAYDON Hinton Trash Collector:: Dr. Pato Shepard Nursery Nurse:: Diamond Tamayo RN Nursery Nurse:: Kobe Cason RN Health Insurance Sales Agent/DISTILLERY MANAGER: Justina Carvalho CST Health Insurance Sales Agent/DISTILLERY MANAGER: Taryn Burgess ST MATERNAL INFORMATION Delivery Anesthesia: Epidural Medications After Delivery: Pitocin Bolus-Please Comment; Pitocin Drip 20 Units/1000ml NSS; Methergine 0.2mg IM; Other-Please Comment Meds After Delivery Comment: methergine 0.2 mg IM into uterus at 1846; cytotec 1000 mcg placed per rectum in PACU Maternal Complications: None LABOR SUMMARY EDC: 10/20/2016 00:00 No. Babies in Womb: 1 Attempted: No LABOR INFORMATION Reason for Induction: Not Applicable Oxytocin: Augmentation Group B Beta Strep: negative Steroids Given: None Reason Steroids Not Administered: Not Applicable MEMBRANES Membranes Rupture Method: Spontaneous Rupture of Membranes: 10/09/2016 02:30 Length of Rupture (hr): 16.22 Amniotic Fluid Color: Clear Amniotic Fluid Amount: Moderate STAGES OF LABOR Stage 3 hr: 0 Stage 3 min: 1 VAGINAL DELIVERY Episiotomy: None Laceration Extension: N/A Laceration Type: None Sponge Count Correct: N/A Sharps Count Correct: N/A CSECTION DELIVERY Primary Indication: Nonreassuring Status Other Primary Indication: intolerance to labor Secondary Indication: N/A CSection Urgency: Non-Scheduled CSection Incidence: Primary Labor: Labor Elective: Elective CSection Incision: Lower Uterine Transverse BABY A INFORMATION Delivery Date/Time: 10/09/2016 18:43 Method of Delivery: Born in Route : No : N/A Forceps: N/A Vacuum Extraction: N/A Shoulder Dystocia : No PRESENTATION/POSITION BABY A Presentation: Cephalic Cephalic Presentation: Vertex Breech Presentation: N/A PLACENTA INFORMATION BABY A Placenta Delivery Time : 10/09/2016 18:44 Placenta Method of Delivery: Manual Removal Placenta Status: Delivered SCORES BABY A Heart Rate 1 min: >100 bpm Resp Effort 1 min: Good Cry Reflex Irritability 1 min: Cough or Sneeze or Pulls Away Muscle Tone 1 min: Flaccid Color 1 min: Body [place], Extremities Blue Resuscitation Effort 1 min: Tactile Stimulation SCORE 1 MIN: 7 Heart Rate 5 min: >100 bpm Resp Effort 5 min: Good Cry Reflex Irritability 5 min: Cough or Sneeze or Pulls Away Muscle Tone 5 min: Active Motion Color 5 min: Body [place], Extremities Blue Resuscitation Effort 5 min: Tactile Stimulation SCORE 5 MIN: 9 INFANT INFORMATION BABY A Gestational Age at Delivery: 38.3 Gestational Status: Early Term- 37- 38.6 Weeks Infant Outcome : Liveborn Condition : Stable Infant Sex: Male IDENTIFICATION BABY A Verification Date/Time: 10/09/2016 18:49 ID Band Number: [id number] Mother's Name Verified: Yes RN Verifying : k bonny rnc Additional Verifying Personnel: d bellavance rnc WEIGHT/LENGTH BABY A Birthweight (gm): 3080 Weight (lb): 6 Infant Weight (oz): 13 Length (in): 18.75 Infant Length (cm): 47.63 CORD INFORMATION BABY A No. Cord Vessels: 3 Nuchal Cord : N/A Cord Blood Taken: Yes-For Eval (Mom's Blood Type - or O+) Infant Suction: Mouth; Nose ASSESSMENT BABY A Skin to Skin: No BABY B INFORMATION : N/A
[2016-10-10] MEDS ORDERED: GENTAMICIN SULFATE 200 MG in DEXTROSE 5%-WATER 100 ML IV ONE (01:00)
[2016-10-10] MEDS ORDERED: GENTAMICIN SULFATE INJ 80 MG/2 ML VIAL IV PRN (01:00)
[2016-10-10] MEDS ORDERED: GENTAMICIN SULFATE INJ 80 MG/2 ML VIAL IV ONE (01:00)
[2016-10-10] MEDS: CLINDAMYCIN 900 MG/D5W RTU 50 ML IV SCH ×3 (02:39→17:42)
[2016-10-10] MEDS: AMPICILLIN SOD INJ 1 GM VIAL IV SCH ×2 (04:00→09:10)
[2016-10-10] MEDS: AMPICILLIN SODIUM 2 GM in NORMAL SALINE 100 ML IV SCH ×4 (04:00→20:48)
--- NOTE | 2016-10-10 04:34 | PDOC DELIVERY SUMMARY ---
Delivery Summary - Maternal Hx : II Hx Para: I Hx # Term Pregnancies: 1 Hx # Pregnancies: 0 Hx Total # of Abortions (Sponateous & Elective): 0 Number of Living Children: 1 JAMES: 10/20/16 Gestational Age: 38+3 Risk Factors: Gestational Diabetes Ruptured Membranes: SROM Fluids: Clear - Delivery Labor: Induction Presentation: Face/Brow - brow Heart Rate Monitoring: Internally Uterine Contraction Monitoring: Internal Pattern: Late Decels Support Person Present: Yes Location: OR : Primary, Emergency Placenta: Within Normal Limits Placenta Description: normal Nuchal Cord: No - Medications Type of Anesthesia:: Epidural - Intrapartum Medications Intrapartum Medications: Intrauterine Methergine 0.2mg - Delivery Medications Delivery Meds: Cytotec 1000mcg Per Rectum/Vagina - Assess and Care Baby 1 Delivery of Date: 10/09/16 Delivery of Infant Time: 18:43 at 1 minute: 7 at 5 minutes: 9 Skin to Skin: No Mode of Transport: Bassinet Infant Delivery Weight: 3.08 kg - Delivery Personnel MD: MILLICENT YU
--- NOTE | 2016-10-10 04:41 | Operative Report ---
Operative Report DATE OF SURGERY: 10/09/16 PREOPERATIVE DIAGNOSIS: Repetitive Late DEcelerations, 38+3ega, GDM POSTOPERATIVE DIAGNOSIS: ANJEL delivered, Forehead presentation. OPERATION: Primary Low Transverse Section. SURGEON: MILLICENT YU ANESTHESIA: Epidural TISSUE REMOVED OR ALTERED: Placenta delivered intact spontaneously, not sent COMPLICATIONS: None ESTIMATED BLOOD LOSS: 600ml INTRAOPERATIVE FINDINGS: Normal uterus, normal tubes/ovaries, Apgars 7/9, weight 3080g. Forehead presentation at delivery. Time of delivery 1843 PROCEDURE: Anesthesia: Epidural Anesthesia provider: [Brenda SANTOS, Jhoan Feng CRNA] Estimated blood loss: [600ml] Urine output: [300ml] IV fluids: [1100ml] Complications: [None] Indications: [25yo at 38+3ega admitted for PROM at 1cm then cervical change spontaneously to 3-4cm and augmentation performed. The patient reached a cervical dilation of approximately 7-8cm and then began having repetitive late decelerations despite intrauterine recussitation efforts. Reviewed with patient and her family regarding the recommendations for Primary section due to non reassuring heart rate tracing and repetitive late decelerations. The risks/benefits/alternatives were reviewed and she desires to proceed with planned procedure.] Procedure: The patient was taken to the operating room where epidural anesthesia was found to be adequate. She was then prepped and draped in the normal sterile fashion and placed in the dorsal supine position with a leftward tilt. A Pfannenstiel skin incision was then made and carried through to the underlying layers of the fascia with the scalpel. The fascia was incised in the midline and the incision extended laterally with the Robledo scissors. The superior aspect of the fascial incision was then grasped with Astrid clamps elevated and the underlying rectus muscles dissected off [bluntly]. Attention was then turned to the inferior aspect of the fascial incision which in a similar fashion was grasped, tented up with Johnathan clamps, and the rectus muscles dissected off [bluntly]. The rectus muscles were then in the midline and the peritoneum at the amount identified and entered [bluntly]. The peritoneal incision was then extended superiorly and inferiorly with good visualization of the bladder. The bladder blade was inserted and the vesicouterine peritoneum identified grasped with Georgian pickups and entered sharply with the Metzenbaum scissors. This incision was then extended laterally with the Metzenbaum scissors and a bladder flap created digitally. The bladder blade was then reinserted and the lower uterine segment incised in a transverse fashion with the scalpel. The uterine incision was then extended bluntly. The bladder blade was removed and the infant's head was delivered from cephalic presentation with presenting part of infant being forehead atraumatically. The nose and mouth were suctioned and the cord doubly clamped and cut. And the was handed off to waiting pediatricians. The placenta was then delivered spontaneously and the uterus exteriorized and cleared of all clots and debris. The uterine incision was then repaired with 1- 0 Vicryl in a running locked fashion. A second layer of the same suture was used to obtain hemostasis via imbrication of the initial layer. The bladder flap was then repaired with 3-0 chromic in a running fashion. The uterus was returned to the patient's abdomen and Interceed was placed overlying the uterine incision to prevent adhesions. The gutters were cleared of all clots and debris. All operative sites were noted to be hemostatic. The fascia was reapproximated with 0 Vicryl in a running fashion from each lateral edge to the midline. The skin was closed with 3-0 Monocryl in a running subcuticular fashion with overlying Dermabond for additional dressing as well as wound closure. The patient tolerated the procedure well. Sponge lap needle and instrument counts are correct times 2. 2 g of Ancef were given prior to skin incision. The patient was taken to the recovery area awake and in stable condition.
[2016-10-10] MEDS: KETOROLAC TROMETHAMINE INJ/PF 30 MG/1 ML SDV IV SCH (07:00)
[2016-10-10 07:20] LABS: MEAN CORPUSCULAR HEMOGLOBIN 28.8 pg (27.0-33.4); MEAN CORPUSCULAR HGB CONC 33.4 g/dL (32.0-36.0); MEAN CORPUSCULAR VOLUME 86 fl (80-97); RED BLOOD COUNT 3.48 10^6/uL (3.72-5.28); RED CELL DISTRIBUTION WIDTH 14.9 % (11.5-14.0); WHITE BLOOD COUNT 7.9 10^3/uL (4.0-10.5)
[2016-10-10] MEDS: OXYCODONE-ACETAMINOPHEN 5-325 MG TABLET PO PRN ×3 (07:21→20:51)
[2016-10-10] MEDS ORDERED: GENTAMICIN SULFATE 150 MG in DEXTROSE 5%-WATER 100 ML IV SCH (09:00)
[2016-10-10] MEDS ORDERED: GENTAMICIN SULFATE INJ 80 MG/2 ML VIAL IV SCH (09:00)
[2016-10-10] MEDS: DOCUSATE SODIUM 100 MG CAPSULE PO SCH ×2 (09:23→17:42)
[2016-10-10] MEDS: PRENATAL VITAMIN W-O CA NO5/FE FUMARATE/FA CAPSULE PO SCH (09:24)
--- NOTE | 2016-10-10 09:55 | PDOC PROGRESS REPORT ---
Subjective-OB Subjective: Post Delivery Day: 1 25 year old. Denies any needs at this time, states lochia is stable, has not been up yet, tolerating pain at this time. Physical Exam (OB) Vital Signs: Temp Pulse Resp BP Pulse Ox 98.1 F 103 H 15 113/70 98 10/10/16 08:22 10/10/16 08:22 10/10/16 08:22 10/10/16 08:22 10/10/16 08:22 Intake & Output 10/09/16 10/10/16 10/11/16 06:59 06:59 06:59 Intake Total 500 500 Output Total 600 300 Balance -100 200 Weight 98.75 kg - Dressing Removed: No Closure Type: Surgical Glue - Lochia Lochia Amount: Small 10-25 ml Lochia Color: Rubra/Red - Abdomen Description: Soft, Round Hernia Present: No Fundal Description: Firm, Midline Fundal Height: u/u - u/2 Objective-Diagnostic Laboratory: 10/10/16 06:51 10/09/16 05:13 10/10/16 06:51 WBC 7.9 RBC 3.48 L Hgb 10.0 L D Hct 30.0 L MCV 86 MCH 28.8 MCHC 33.4 RDW 14.9 H Plt Count 185 Assessment and Plan(PN) - Assessment and Plan (1) delivery delivered Is this a current diagnosis for this admission?: YesPlan: routine post op care (2) Anemia Qualifiers: Anemia type: iron deficiency Iron deficiency anemia type: other iron deficiency Qualified Code(s): D50.8 - Other iron deficiency anemias Is this a current diagnosis for this admission?: YesPlan: ferrous sulfate increase dietary iron (3) Gestational diabetes mellitus Qualifiers: Gestational diabetes mellitus control: diet-controlled Trimester: third trimester Qualified Code(s): O24.410 - Gestational diabetes mellitus in , diet controlled Is this a current diagnosis for this admission?: YesPlan: yearly follow up - Time Spent with Patient Time with patient: Less than 15 minutes Critical Time spent with patient: Less than 15 minutes Medications reviewed and adjusted accordingly: Yes - Disposition Anticipated Discharge: Home Within: within 24 hours
[2016-10-10] MEDS: GENTAMICIN SULFATE IV SCH ×2 (10:41→19:02)
[2016-10-10] MEDS: WATER IV SCH ×2 (10:41→19:02)
[2016-10-10] MEDS: DEXTROSE 5% IV SCH ×2 (10:41→19:02)
[2016-10-10] MEDS: IBUPROFEN 800 MG TABLET PO SCH ×2 (11:39→17:41)
[2016-10-11] MEDS: IBUPROFEN 800 MG TABLET PO SCH ×4 (00:57→17:20)
[2016-10-11] MEDS: CLINDAMYCIN 900 MG/D5W RTU 50 ML IV SCH (01:01)
[2016-10-11] MEDS: GENTAMICIN SULFATE IV SCH (02:04)
[2016-10-11] MEDS: WATER IV SCH (02:04)
[2016-10-11] MEDS: DEXTROSE 5% IV SCH (02:04)
[2016-10-11] MEDS: AMPICILLIN SODIUM 2 GM in NORMAL SALINE 100 ML IV SCH (03:09)
--- NOTE | 2016-10-11 09:17 | PDOC PROGRESS REPORT ---
Subjective-OB Subjective: Post Delivery Day: 2 25 year old. Denies any needs at this time, pt unsure if she is ready for d/c at this time, pain moderately well controlled, lochia is stable, tolerating diet, passing gas, voiding without difficulty. Physical Exam (OB) Vital Signs: Temp Pulse Resp BP Pulse Ox 97.4 F 99 16 106/74 100 10/11/16 08:20 10/11/16 08:20 10/11/16 08:20 10/11/16 08:20 10/11/16 08:20 Intake & Output 10/10/16 10/11/16 10/12/16 06:59 06:59 06:59 Intake Total 500 1120 Output Total 600 300 Balance -100 820 - PIH/Pre-Eclampsia DTR's: 1 + Clonus: Negative Headache: Absent Epigastric Pain: No Visual Changes: No - Dressing Removed: Yes Incision: Well Approximated Closure Type: Sutures - Lochia Lochia Amount: Small 10-25 ml Lochia Color: Rubra/Red - Abdomen Description: Soft, Round Hernia Present: No Fundal Description: Firm, Midline Fundal Height: u/u - u/2 Objective-Diagnostic Laboratory: 10/10/16 06:51 10/09/16 05:13 Assessment and Plan(PN) - Assessment and Plan (1) delivery delivered Is this a current diagnosis for this admission?: YesPlan: routine pp care may cancel d/c if pt is not ready for d/c then will d/c home tomorrow (2) Anemia Qualifiers: Anemia type: iron deficiency Iron deficiency anemia type: other iron deficiency Qualified Code(s): D50.8 - Other iron deficiency anemias Is this a current diagnosis for this admission?: YesPlan: ferrous sulfate increase dietary iron (3) Gestational diabetes mellitus Qualifiers: Gestational diabetes mellitus control: diet-controlled Trimester: third trimester Qualified Code(s): O24.410 - Gestational diabetes mellitus in , diet controlled Is this a current diagnosis for this admission?: YesPlan: yearly screening - Time Spent with Patient Time with patient: Less than 15 minutes Critical Time spent with patient: Less than 15 minutes Medications reviewed and adjusted accordingly: Yes - Disposition Anticipated Discharge: Home Within: within 48 hours
--- NOTE | 2016-10-11 09:22 | PDOC DISCHARGE SUMMARY ---
Addendum entered and electronically signed by JAHAIRA TINAJERO CNM 10/12/16 09:21: Final Diagnosis Discharge Date: 10/12/16 - Final Diagnosis (1) delivery delivered Is this a current diagnosis for this admission?: Yes (2) Anemia Is this a current diagnosis for this admission?: Yes (3) Gestational diabetes mellitus Is this a current diagnosis for this admission?: Yes Original Note: Final Diagnosis Discharge Date: 10/11/16 - Final Diagnosis (1) delivery delivered Is this a current diagnosis for this admission?: Yes (2) Anemia Is this a current diagnosis for this admission?: Yes (3) Gestational diabetes mellitus Is this a current diagnosis for this admission?: Yes Discharge Data - Discharge Medication Home Medications: Vit#96/Ferrous Fum/FA [ Tablet] 1 tab PO DAILY 12/16/14 Docusate Sodium [Colace 100 mg Capsule] 100 mg PO BID #60 capsule 10/11/16 Ferrous Sulfate 325 mg PO BID #60 tablet. 10/11/16 Ibuprofen [Motrin 800 mg Tablet] 800 mg PO Q6 #60 tablet 10/11/16 Oxycodone HCl/Acetaminophen [Percocet 5-325 mg Tablet] 2 tab PO Q4HP PRN #30 tablet 10/11/16 Gestational Age: 38.3 Reason(s) for Admission: Onset of Labor, Ceasarean Section-Primary, Gestional Diabetes Procedures: NST Intrapartum Procedure(s): : Low Cervical, Transverse - [place] Data Baby 1 Male at 1 minute: 7 at 5 minutes: 9 Home with Mother: No Complications: Yes - maternal temp, nrfht - Diagnosis Test Laboratory: Temp Pulse Resp BP Pulse Ox 97.4 F 99 16 106/74 100 10/11/16 08:20 10/11/16 08:20 10/11/16 08:20 10/11/16 08:20 10/11/16 08:20 10/09/16 10/09/16 10/10/16 04:20 05:13 06:51 RBC 4.64 3.48 L Hgb 13.0 10.0 L D Hct 39.5 30.0 L Urine Opiates Screen NEGATIVE - Discharge information/Instructions Discharge Activity: Activity As Tolerated, No Lifting Over 10 Pounds, Pelvic Rest, No tub bath Discharge Diet: Regular Disposition: HOME, SELF-CARE Follow up with: [facility] in: 1, Weeks
[2016-10-11] MEDS: DOCUSATE SODIUM 100 MG CAPSULE PO SCH ×2 (10:20→17:20)
[2016-10-11] MEDS: PRENATAL VITAMIN W-O CA NO5/FE FUMARATE/FA CAPSULE PO SCH (10:20)
[2016-10-11] MEDS: OXYCODONE-ACETAMINOPHEN 5-325 MG TABLET PO PRN ×2 (15:28→22:29)
[2016-10-12] MEDS: IBUPROFEN 800 MG TABLET PO SCH ×2 (00:17→05:52)
[2016-10-12] MEDS: DOCUSATE SODIUM 100 MG CAPSULE PO SCH (09:20)
[2016-10-12] MEDS: PRENATAL VITAMIN W-O CA NO5/FE FUMARATE/FA CAPSULE PO SCH (09:20)
[2016-10-12 11:24] VITALS: BP 120/53
== END 2016-10-12 12:05 | disposition home or self-care (01) | DRG 765 ==
LOC: LC 04:08 → UNDOADMIN 05:04 → LR 05:04 → UNDOADMIN 08:51 → 2S 22:12
PROVIDERS: ADMIT Obstetrics & Gynecology; ATTEND Obstetrics & Gynecology
PROC: 10D00Z1 Extraction of Products of Conception, Low, Open Approach (ICD-10-PCS; principal; 2016-10-09)
PROC: 10H07YZ Insertion of Other Device into Products of Conception, Via Natural or Artificial Opening (ICD-10-PCS; 2016-10-09)
PROC: 4A1H7CZ Monitoring of Products of Conception, Cardiac Rate, Via Natural or Artificial Opening (ICD-10-PCS; 2016-10-09)
DX: O76 Abnormality in fetal heart rate and rhythm complicating labor and delivery (principal); O75.2 Pyrexia during labor, not elsewhere classified; O64.2XX0 Obstructed labor due to face presentation, not applicable or unspecified; O24.429 Gestational diabetes mellitus in childbirth, unspecified control; O99.02 Anemia complicating childbirth; D50.8 Other iron deficiency anemias; Z3A.38 38 weeks gestation of pregnancy; Z37.0 Single live birth
CPT/HCPCS: 1961; 36415; 80053; 80307; 81005; 84112; 85025; 85027; 86592; 86850; 86900; 86901; 94760; 94799; J0131; J0290; J0690; J1170; J1580; J1885; J2210; J2300; J2370; J2550; J2590; J3010; J3490

== ENCOUNTER 2017-06-20 19:47 | Emergency (ER) | payer BC, MEDICAID ==
[2017-06-20] MEDS ORDERED: DIPHENHYDRAMINE HCL 50 MG CAPSULE PO ONE (21:41)
[2017-06-20] MEDS ORDERED: PREDNISONE 20 MG TABLET PO ONE (21:41)
[2017-06-20] MEDS ORDERED: FAMOTIDINE 20 MG TABLET PO ONE (21:42)
--- NOTE | 2017-06-20 21:47 | ER Document Report ---
ED Allergic Reaction - General Chief Complaint: Allergic Reaction Stated Complaint: POSSIBLE ALLERGIC REACTION Time Seen by Provider: 06/20/17 21:15 Mode of Arrival: Ambulatory Information source: Patient Notes: 26-year-old female presents to ED for complaint of hives to arms legs abdomen and back since yesterday. She states she is 23 weeks 3 days and received AP 17 shot yesterday. She states she has been itching since on her way home. She states she is not having any difficulty breathing or any swelling to her mouth or throat. States she took Benadryl last around 5:00 tonight she took 25 mg p.o. TRAVEL OUTSIDE OF THE [place] IN LAST 30 DAYS: No - HPI Onset: Yesterday Onset/Duration: Gradual, Persistent Quality of pain: No pain Severity: None Pain Level: Denies Identified cause: Possibly - PT 17 shot she received for her Skin rash / itching: Trunk, Extremities, Diffuse, "Redness", "Hives" Associated symptoms: None Similar symptoms previously: No Recently seen / treated by doctor: Yes - Related Data Allergies/Adverse Reactions: No Known Allergies Allergy (Verified 07/15/16 11:53) Past Medical History - General Information source: Patient Last Menstrual Period: 23 weeks 3 days - Social History Smoking Status: Never Smoker Cigarette use (# per day): No Chew tobacco use (# tins/day): No Smoking Education Provided: No Frequency of alcohol use: None Drug Abuse: None Lives with: Family Family History: Other - . Patient was adopted by her grandmother who actually is her mother's adopted mother does not know biological family history Patient has suicidal ideation: No Patient has homicidal ideation: No - Past Medical History Cardiac Medical History: Reports: None Pulmonary Medical History: Reports: Hx Asthma - childhood EENT Medical History: Reports: None Neurological Medical History: Reports: None Endocrine Medical History: Reports: None Renal/ Medical History: Reports: None Malignancy Medical History: Reports: None GI Medical History: Reports: None Musculoskeltal Medical History: Reports None Skin Medical History: Reports None Psychiatric Medical History: Reports: None Traumatic Medical History: Reports: None Infectious Medical History: Reports: None Past Surgical History: Reports: Hx Section - Immunizations Immunizations up to date: Yes Review of Systems - Review of Systems Constitutional: No symptoms reported EENT: No symptoms reported Cardiovascular: No symptoms reported Respiratory: No symptoms reported Gastrointestinal: No symptoms reported Genitourinary: No symptoms reported Female Genitourinary: No symptoms reported Musculoskeletal: No symptoms reported Skin: Other - Hives to abdomen chest back itching to arms and legs Hematologic/Lymphatic: No symptoms reported Neurological/Psychological: No symptoms reported -: Yes All other systems reviewed and negative Physical Exam - Vital signs Vitals: Temp Pulse Resp BP Pulse Ox 99.5 F 100 18 132/58 H 100 06/20/17 20:14 06/20/17 20:14 06/20/17 20:14 06/20/17 20:14 06/20/17 20:14 Interpretation: Normal - General General appearance: Appears well, Alert - HEENT Head: Normocephalic, Atraumatic Eyes: Normal Pupils: PERRL - Respiratory Respiratory status: No respiratory distress Chest status: Nontender Breath sounds: Normal Chest palpation: Normal - Cardiovascular Rhythm: Regular Heart sounds: Normal auscultation Murmur: No - Abdominal Inspection: Normal Distension: No distension Bowel sounds: Normal Tenderness: Nontender Organomegaly: No organomegaly - Back Back: Normal, Nontender - Extremities General upper extremity: Normal inspection, Nontender, Normal color, Normal ROM , Normal temperature General lower extremity: Normal inspection, Nontender, Normal color, Normal ROM , Normal temperature, Normal weight bearing. No: Angel's sign - Neurological Neuro grossly intact: Yes Cognition: Normal Orientation: AAOx4 [place] Coma Scale Eye Opening: Spontaneous [place] Coma Scale Verbal: Oriented Y[place]ya Coma Scale Motor: Obeys Commands [place] Coma Scale Total: 15 Speech: Normal Motor strength normal: LUE, RUE, LLE, RLE Sensory: Normal - Psychological Associated symptoms: Normal affect, Normal mood - Skin Skin Temperature: Warm Skin Moisture: Dry Skin Color: Normal Location of irregularity: Abdomen, Chest, Back, Extremities Character of irregularity: Erythematous, Urticarial Course - Re-evaluation Re-evalutation: 06/20/17 21:[address] Moe concerning the hives to the abdomen back chest and extremities after receiving the P 17 shot for her . Patient is [address] Moe stated that it was okay to give a short prescription of prednisone in for her hives. She was also treated with Benadryl and Pepcid. Patient was discharged home with instructions to use ice packs for itching do not scratch use cool showers instead of warm to decrease the itching. Use Benadryl Pepcid as instructed. - Vital Signs Vital signs: Temp Pulse Resp BP Pulse Ox 99.5 F 98 16 113/65 98 06/20/17 20:14 06/20/17 22:09 06/20/17 22:09 06/20/17 22:09 06/20/17 22:09 Discharge - Discharge Clinical Impression: Allergic urticaria Condition: Stable Disposition: HOME, SELF-CARE Additional Instructions: ACUTE ALLERGIC REACTION: Your symptoms are due to an allergic reaction. Allergy can cause hives, swelling of the hands, feet, and face, hoarseness, and difficulty swallowing or breathing. It may be due to exposure to medication, animal dander, foods, infection, or insect bites. Medication is a common cause, even when prior use of this same medication caused no problems. Acute treatment may include adrenalin and antihistamines. Usually, the specific allergic agent can't be identified unless repeated episodes occur. Home treatment includes the following: (1) Stop any suspicious medications. This will be discussed with you. (2) Oral antihistamines for the next four to five days. Example, diphenhydramine (Benadryl) every four hours. (3) You may also use cimetidine (Tagamet), ranitidine (Zantac), or famotidine ( Pepcid) every four hours if diphenhydramine is not controlling itching and hives. (4) Avoid aspirin until the hives completely disappear. (5) Avoid hot baths or showers until the hives are completely gone. Call the doctor if faintness, difficulty swallowing, tightness in the chest , or wheezing occurs. STEROID MEDICATION: You have been given a medicine of the cortisone/steroid class. This medication is used to control inflammation or allergy. It is usually only given for a short period of time, until the acute process subsides. There are usually no side effects from short-term use of cortisone-like medications. Some persons feel an increased sense of well-being and are not sleepy at bedtime. Long-term use of cortisone medications is best avoided, unless required for a severe condition. If your condition does not remit, or relapses after the course of corticosteroid medication, you should consult your physician. ACID-SUPPRESSING MEDICATION: You have a prescription for medicine which reduces the stomach's secretion of acid. Examples include Zantac, Tagament, and Pepcid. These drugs are often used to allow healing of ulcers or esophagitis. They may be needed to prevent recurrence of ulcers in some patients, or to prevent damage from acid reflux in the esophagus. Take all medication as prescribed, even after the pain is gone. Regular antacids may be added as needed if you have symptoms while taking this medicine. These medications sometimes are prescribed for allergic reactions because they have anti-histaminic effects and relieve the rash and itching of the reaction. There are usually no side effects from this medication. But, in rare cases and particularly in the elderly, serious problems can occur. Contact your doctor if there is fever, rash, hallucinations, confusion, or unusual bruising. Contact your doctor at once if you develop lightheadedness, black or bloody stool, or bloody vomitus. ANTIHISTAMINES: An antihistamine has been given and/or prescribed to control your symptoms. Antihistamines are used for many reasons, including itching, watering eyes, runny nose, allergic swelling, hives, and insect stings. Antihistamines may cause drowsiness, especially with the first dose. Do not operate machinery or drive while under the effects of the medication. Other common side effects include dry mouth and eyes. In older persons, antihistamines can occasionally cause urinary retention, constipation, and trouble focusing the eyes. Do not combine the medication with alcohol, or with any other medication without talking to your doctor. USE OF DIPHENHYDRAMINE: The use of diphenhydramine (Benadryl) has been recommended to control allergic symptoms. The 25 mg strength is available over- the-counter, as well as the elixir. This antihistamine is used for many symptoms. It's useful for itching, watering eyes and nose, allergic swelling, hives, and insect stings. The medication can be repeated four times daily. Age Elixir (12.5 mg/tsp) 25 mg pill 2-3 yr 1/2 tsp 4-8 yr 1 tsp 9-14 yr 2 tsp one tab adult 1-2 tabs Antihistamines may cause drowsiness, especially with the first dose. Do not operate machinery or drive while under the effects of the medication. Do not combine the medication with alcohol, or with any other medication without talking to your doctor. FOLLOW-UP CARE: If you have been referred to a physician for follow-up care, call the physician s office for an appointment as you were instructed or within the next two days. If you experience worsening or a significant change in your symptoms, notify the physician immediately or return to the Emergency Department at any time for re-evaluation. Please call [employer] on Thursday let them know that you had allergic urticaria to the P 17 shot that you had yesterday. Please informed her that you have been treated with Pepcid Benadryl and prednisone. Please take medications as prescribed. Please take the Pepcid twice a day. Prescriptions: Famotidine [Pepcid 20 mg Tablet] 20 mg PO BID #12 tablet Prednisone [Deltasone 10 mg Tablet] 10 mg PO ASDIR PRN #21 tablet PRN Reason: Forms: Elevated Blood Pressure, Return to Work Referrals: [facility] [Provider Group] - 06/22/17
[2017-06-20 22:10] VITALS: BP 113/65
== END 2017-06-20 22:12 | disposition home or self-care (01) ==
LOC: ER 19:47
DX: O99.712 Diseases of the skin and subcutaneous tissue complicating pregnancy, second trimester (principal); L50.0 Allergic urticaria; Z3A.23 23 weeks gestation of pregnancy
CPT/HCPCS: 99283; J7512

== ENCOUNTER 2017-09-01 12:51 | Inpatient (IN) | payer BC, MEDICAID ==
[2017-09-01] MEDS ORDERED: BETAMET ACET/BETAMET NA INJ 6 MG/1 ML IM ONE ×2 (13:28→23:45)
[2017-09-01] MEDS ORDERED: BETAMET ACET/BETAMET NA INJ 6 MG/1 ML ONE (13:32)
[2017-09-01] MEDS ORDERED: AMPICILLIN SOD INJ 2 GM VIAL ONE ×2 (13:33→19:24)
[2017-09-01 13:37] LABS: AMNISURE (ROM) POSITIVE (NEGATIVE)
[2017-09-01] MEDS ORDERED: AMPICILLIN SODIUM 2 GM in NORMAL SALINE 100 ML IV SCH (13:45)
[2017-09-01 13:50] LABS: APPEARANCE,URINE SLIGHTLY-CLOUDY; BILIRUBIN,URINE NEGATIVE (NEGATIVE); COLOR,URINE YELLOW; GLUCOSE, URINE >=500 mg/dL (NEGATIVE); KETONES,URINE NEGATIVE (NEGATIVE); LEUKOCYTE ESTERASE,URINE NEGATIVE (NEGATIVE); NITRITE,URINE NEGATIVE (NEGATIVE); PROTEIN,URINE 30 mg/dL (NEGATIVE); URINE SPECIFIC GRAVITY 1.022
[2017-09-01] MEDS ORDERED: RINGERS SOLUTION,LACTATED 1,000 ML IV ONE (13:56)
[2017-09-01] MEDS ORDERED: NORMAL SALINE 1000 ML 1,000 ML IV SCH (14:15)
[2017-09-01 14:16] LABS: ABSOLUTE LYMPHOCYTES (AUTO) 1.8 10^3/uL (0.5-4.7); ABSOLUTE MONOCYTES (AUTO) 0.4 10^3/uL (0.1-1.4); ABSOLUTE NEUT (AUTO) 8.1 10^3/uL (1.7-8.2); BASOPHILS % (AUTO) 0.3 % (0-2); EOSINOPHILS % (AUTO) 0.5 % (0-6); HEMATOCRIT 34.6 % (36.0-47.0); HEMOGLOBIN 11.6 g/dL (12.0-15.5); LYMPHOCYTES % (AUTO) 17.2 % (13-45); MEAN CORPUSCULAR HEMOGLOBIN 27.5 pg (27.0-33.4); MEAN CORPUSCULAR HGB CONC 33.7 g/dL (32.0-36.0); MEAN CORPUSCULAR VOLUME 82 fl (80-97); MONOCYTES % (AUTO) 4.3 % (3-13); PLATELET COUNT 268 10^3/uL (150-450); RED BLOOD COUNT 4.23 10^6/uL (3.72-5.28); RED CELL DISTRIBUTION WIDTH 16.4 % (11.5-14.0); SEGMENTED NEUTROPHILS % (AUTO) 77.7 % (42-78); TOTAL CELLS COUNTED % (AUTO) 100 %; WHITE BLOOD COUNT 10.4 10^3/uL (4.0-10.5)
[2017-09-01] MEDS ORDERED: NIFEDIPINE 10 MG CAPSULE ONE ×3 (14:16→21:31)
[2017-09-01 14:18] LABS: URINE AMPHETAMINES SCREEN NEGATIVE; URINE BARBITURATES SCREEN NEGATIVE; URINE BENZODIAZEPINES SCREEN NEGATIVE; URINE COCAINE SCREEN NEGATIVE; URINE MARIJUANA (THC) SCREEN NEGATIVE; URINE METHADONE SCREEN NEGATIVE; URINE PHENCYCLIDINE SCREEN NEGATIVE
[2017-09-01] MEDS ORDERED: GLUCAGON,HUMAN RECOMB 1 MG INJ IM PRN (14:22)
[2017-09-01] MEDS ORDERED: DEXTROSE 50%-WATER 25 GM/50 ML DISP.SYRIN IV PRN ×2 (14:22)
[2017-09-01] MEDS ORDERED: DEXTROSE 40% GEL 15 GM TUBE PO PRN ×2 (14:22)
[2017-09-01] MEDS ORDERED: ERYTHROMYCIN BASE 250 MG TABLET PO SCH (14:30)
[2017-09-01] MEDS ORDERED: ERYTHROMYCIN LACTOBIONATE 500 MG in NORMAL SALINE 100 ML IV SCH (15:00)
[2017-09-01] MEDS ORDERED: ERYTHROMYCIN BASE 250 MG TABLET PO ONE (16:00)
--- NOTE | 2017-09-01 16:04 | Admission Physical ---
Datetime Report Generated by CPN: 09/01/2017 16:03 CURRENT ADMISSION Chief Complaint: Suspected Ruptured Membranes Indication for Induction: Not Applicable Admit Impression : , Intrauterine ; Ruptured Membranes; Repeat Section Admit Plan: Admit to Unit; Initiate Section Protocol ALLERGIES Medication Allergies: No Medication Allergies: No Known Allergies (09/01/2017) Latex: No Latex Allergies OBSTETRICAL HISTORY EDC: 10/14/2017 00:00 : 3 Para: 2 Term: 1 : 1 SAB: 0 IAB: 0 Ectopic: 0 Livin Cesareans: 1 VBACs: 0 Multiple Births: 0 Gestational Diabetes: Yes Rh Sensitization: No Incompetent Cervix: No RAIN: No Infertility: No ART Treatment: No Uterine Anomaly: No IUGR: No Hx Previous C/S: Yes Macrosomia: No Hx Loss/Stillborn: No PIH: No Hx : No Placenta Previa/Abruption: No Depression/PP Depression: No PTL/PROM: Yes Post Hemorrhage: No Current Procedures: Ultrasound; NST Obstetrical History Comments: G1- viable baby girl @ 35wks G2- C/S viable baby boy @ 37wks G3- Current GDM SEE RECORDS Alcohol: No Marijuana : No Cocaine: No Other Illicit Drugs: No Cigarettes: Never Smoker. 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 Surgery: No Heart Disease: No Hosp/Surgery: Yes Autoimmune Disorder: No Anesthetic Complications: No Kidney Disease: No Abnormal Pap Smear: No Neuro/Epilepsy: No Psychiatric Disorders: No Other Medical Diseases: No Hepatitis/Liver Disease: No Significant Family History: No Varicosities/Phlebitis: No Trauma/Violence : No Thyroid Dysfunction: No Medical History Comments: Asthma as a child Previous hospitalizations from childbirth INFECTIOUS HISTORY Gonorrhea: No Genital Herpes: No Chlamydia: No Tuberculosis: No Syphilis: No Hepatitis: No HIV/AIDS Exposure: No Rash or Viral Illness: No HPV: No PHYSICAL EXAM General: Normal HEENT: Normal Neurologic: Normal Thyroid: Deferred Heart: Normal Lungs: Normal Breast: Deferred Back: Normal Abdomen: Normal Genitourinary Exam: Normal Extremities: Normal DTRs: Normal Pelvic Type: Adequate Vital Signs: Reviewed VAGINAL EXAM Contraction Comments: rare MEMBRANES Membranes: Ruptured Amniotic Fluid Color: Clear FETUS A EGA: 33.6 Monitoring: External US FHR- Baseline: 160 Variability: Moderate 6-25bpm Accelerations: 15X15 Decelerations: None FHR Category: Category I Presentation: Vertex Admit Comment: 26yo at 33+6ega by 22wks US with c/b 23wks 1 hr GTT 260 (pregestational vs gestational diabetes). H/o delivery - was on P17, had reaction to P17 - switched to prometrium 200mg per vagina. Hb A1c ordered at admission suspect pregestational. Reported anatomy normal. US ordered for EFW. BMI 36. H/o at 35wks (2015, GDM, 5#2oz, labor). H/o C/S at 38wks for failure to progress with EFW 6#13oz, GDM. Reviewed with patient that less than one year (prior c/s wa 09/29/2016) would not recommend TOLAC. She desires to have BTL - title XX signed in office. BMZ for FLM. Ampicillin 2g IV q 6hr and Erythro 500mg Q6hrs po (no IV erythro avail). Procardia 10mg po Q 6 hours for tocolysis given. NICU and Anesthesia notified. Plan for scheduled c/s with BTL on 09/02 for 34+0ega and PPROM. OR notified and case added. NPO after midnight tonight. Q 2 hour accucheck with SSI ordered. RBS on admission 190. GBS unknown - GBS done on admission in case NICU needs it for baby. section tonight for maternal/ indications if needed. Will given Ancef prior to section. PLANS FOR LABOR AND DELIVERY Feeding Preference: Formula Benefit of Breast Feed Discussed: Yes Circumcision: N/A INFORMED CONSENT Informed Consent Obtained: Section Delivery; Risks, Benefits and Alternatives Discussed Signature: with User ID: [email or web address]
[2017-09-01] MEDS ORDERED: INSULIN REG, HUMAN 100 UNIT/ML 3 ML VIAL (PYX) ONE ×3 (16:42→22:46)
[2017-09-01] MEDS ORDERED: ACETAMINOPHEN 325 MG TABLET PO ONE (16:44)
[2017-09-01] MEDS: INSULIN REG, HUMAN 100 UNIT/ML 3 ML VIAL (PYX) SUBCUT PRN ×3 (16:46→22:49)
[2017-09-01] MEDS ORDERED: ACETAMINOPHEN 325 MG TABLET ONE (16:57)
[2017-09-01] MEDS ORDERED: NIFEDIPINE 10 MG CAPSULE PO SCH ×3 (17:00→18:00)
[2017-09-01] MEDS: AMPICILLIN SOD INJ 2 GM VIAL IV SCH (19:34)
--- NOTE | 2017-09-01 19:40 | RADIOLOGY REPORT (SQ) ---
EXAM DESCRIPTION: U/S OB LIMITED COMPLETED DATE/TIME: 09/01/2017 7:26 pm REASON FOR STUDY: montez, sdp, weight, presentation COMPARISON: None. TECHNIQUE: Limited transvaginal and transabdominal grayscale ultrasound for evaluation of specific r equested obstetrical parameters. LIMITATIONS: None. FINDINGS: CERVICAL LENGTH: 2.7 cm with mild funneling. MONTEZ: 7.7 cm. LVP: 2.6 cm FHR: 180 beats per minute. PRESENTATION: Cephalic. OTHER: Anterior placenta. EFW 2283 g. IMPRESSION: LIMITED OBSTETRICAL ULTRASOUND WITH MEASURED PARAMETERS DELINEATED ABOVE. Trimester of : Third trimester - 28 weeks to delivery. TECHNICAL DOCUMENTATION: JOB ID: [id number] [place]-72 2010 [employer]- All Rights Reserved Reading location - IP/workstation name: [email or web address]
[2017-09-01] MEDS ORDERED: BUTALB/ACETAMINOPHEN/CAFFEINE 1 TAB EACH PO PRN (20:57)
[2017-09-01] MEDS ORDERED: BUTALB/ACETAMINOPHEN/CAFFEINE 1 TAB EACH ONE (21:02)
[2017-09-01] MEDS: NIFEDIPINE 10 MG CAPSULE PO SCH (21:32)
[2017-09-01] MEDS ORDERED: ZOLPIDEM TARTRATE 5 MG TABLET PO ONE (22:40)
[2017-09-01] MEDS ORDERED: ZOLPIDEM TARTRATE 5 MG TABLET ONE (22:46)
[2017-09-02] MEDS ORDERED: ERYTHROMYCIN BASE 250 MG TABLET PO SCH ×2
[2017-09-02] MEDS: INSULIN REG, HUMAN 100 UNIT/ML 3 ML VIAL (PYX) SUBCUT PRN ×3 (00:55→04:48)
[2017-09-02] MEDS ORDERED: INSULIN REG, HUMAN 100 UNIT/ML 3 ML VIAL (PYX) ONE ×3 (00:55→04:44)
[2017-09-02] MEDS ORDERED: AMPICILLIN SOD INJ 2 GM VIAL ONE (01:14)
[2017-09-02] MEDS ORDERED: BETAMET ACET/BETAMET NA INJ 6 MG/1 ML ONE (01:26)
[2017-09-02] MEDS: AMPICILLIN SOD INJ 2 GM VIAL IV SCH (01:34)
[2017-09-02] MEDS ORDERED: ACETAMINOPHEN 325 MG TABLET ONE (02:36)
[2017-09-02] MEDS ORDERED: NIFEDIPINE 10 MG CAPSULE ONE (02:36)
[2017-09-02] MEDS: NIFEDIPINE 10 MG CAPSULE PO SCH (02:42)
--- NOTE | 2017-09-02 04:30 | L&D Progress Notes ---
PROGRESS NOTES Datetime Report Generated by CPN: 09/02/2017 04:30 PROGRESS NOTE Impression: Reassuring Heart Rate Plan: Continue Present Management Informed Consent Obtained: Vaginal Delivery; Section Delivery; Risks, Benefits and Alternatives Discussed Informed Consent Obtained: Section Delivery; Risks, Benefits and Alternatives Discussed Vital Signs : Reviewed Comment: Pt here for PPROM at 33+6ega. H/o then C/S - pt had desired TOLAC. However, since less than 1 year from prior c/s then would not recommend TOLAC. She desires BTL. She is on the schedule for C/S in am since now 34+0ega. She has ceased contractions with IVF and Procardia. She recieved Ampicillin 4 doses, and Erythro 2 doses . BMZ dose @ 2 given at 2 hours after initial at 0130. Procardia/Amp/Erythro discontinued since next dose would be after baby delivered via section. Nursery aware. Reassuring FWB. Anticipate delivery via section in am. VAGINAL EXAM Dilatation: 0 Effacement: 0 Station: -3 Contractions: reg Contractions: rare MEMBRANES Membranes: Ruptured Amniotic Fluid Color: Clear FETUS A FHR - Baseline: 140 Monitoring: External US Variability: Moderate 6-25bpm Accelerations: 15X15 Decelerations: None FHR Category: Category I Presentation: Vertex SIGNATURE SIGNATURE: [id number];[id number] SIGNATURE: [id number] Signature: with User ID: [email or web address]
[2017-09-02] MEDS ORDERED: CEFAZOLIN SODIUM 2 GM in DEXTROSE 5%-WATER 100 ML IV PRN (05:00)
[2017-09-02] MEDS ORDERED: CITRIC ACID/SODIUM CITRATE ORAL SOLN 15 ML UDCUP PO ONE (06:00)
[2017-09-02] MEDS ORDERED: CITRIC ACID/SODIUM CITRATE ORAL SOLN 15 ML UDCUP ONE (06:10)
[2017-09-02] MEDS ORDERED: CEFAZOLIN INJ 1 GM VIAL ONE (06:10)
[2017-09-02] MEDS ORDERED: EPHEDRINE SULFATE INJ 50 MG/1 ML AMPULE ONE (06:50)
[2017-09-02] MEDS ORDERED: FENTANYL CITRATE INJ/PF 100 MCG/2 ML AMPUL ONE (06:50)
[2017-09-02] MEDS ORDERED: OXYTOCIN 10 UNIT/ML VIAL ONE (06:50)
[2017-09-02] MEDS ORDERED: MIDAZOLAM 2 MG/2 ML INJ ONE (06:51)
[2017-09-02] MEDS ORDERED: OXYTOCIN/NORMAL SALINE 20 UNIT/1,000 ML RTUINJ ONE ×2 (06:51→09:29)
[2017-09-02] MEDS ORDERED: ONDANSETRON HCL INJ/PF 4 MG/2 ML SDV ONE (06:51)
[2017-09-02] MEDS ORDERED: BUPIVACAINE HCL/DEX-WATER/PF 15 MG/2 ML AMPULE ONE (06:55)
[2017-09-02] MEDS ORDERED: CEFAZOLIN 2 GM/D5W RTU 2 GM/50 ML RTUPB IV SCH (07:00)
[2017-09-02] MEDS ORDERED: TETRACAINE HCL/PF 20MG/2ML AMPULE (SPINAL) ONE (07:42)
[2017-09-02] MEDS ORDERED: PROMETHAZINE HCL INJ 25 MG/1 ML VIAL IV PRN ×2 (07:57→08:41)
[2017-09-02] MEDS ORDERED: MEPERIDINE HCL/PF INJ 25 MG/1 ML DISP.SYRIN IV PRN (07:57)
[2017-09-02] MEDS ORDERED: DIPHENHYDRAMINE HCL 50 MG/ML VIAL IV PRN (07:57)
[2017-09-02] MEDS ORDERED: FENTANYL CITRATE INJ/PF 100 MCG/2 ML AMPUL IV PRN ×3 (07:57)
[2017-09-02] MEDS ORDERED: NALBUPHINE HCL INJ 10 MG/1 ML AMPULE IM ONE (07:58)
[2017-09-02] MEDS ORDERED: SIMETHICONE 80 MG TAB.CHEW PO PRN (08:41)
[2017-09-02] MEDS ORDERED: ACETAMINOPHEN 325 MG TABLET PO PRN (08:41)
[2017-09-02] MEDS ORDERED: MORPHINE SULFATE 10 MG/ML INJ IM PRN (08:41)
[2017-09-02] MEDS ORDERED: MEASLES,MUMPS&RUBELLA VACC/PF 0.5 ML VIAL SUBCUT PRN (08:41)
[2017-09-02] MEDS ORDERED: DIPH/PERTUSS(ACELL)/TETANUS VAC/PF 0.5 ML SYR (>=10YO) IM PRN (08:41)
[2017-09-02] MEDS ORDERED: OXYTOCIN/NORMAL SALINE 20 UNIT/1,000 ML RTUINJ IV PRN (08:41)
[2017-09-02] MEDS ORDERED: NALBUPHINE HCL INJ 10 MG/1 ML AMPULE INJ ONE (08:57)
--- NOTE | 2017-09-02 08:59 | OPERATIVE REPORT E ---
Operative Report NAME: KAMLESH TANG : 1990 AGE: 26Y DATE OF SURGERY: 09/02/2017 ROOM: LR200 PREOPERATIVE DIAGNOSES: 1. IUP at 34 weeks with rupture of membranes. 2. Repeat . 3. Desire of sterilization. POSTOPERATIVE DIAGNOSES: 1. IUP at 34 weeks with rupture of membranes. 2. Repeat . 3. Desire of sterilization. PROCEDURES: 1. Repeat low transverse . 2. Bilateral tubal occlusion using Filshie clips. SURGEON: Diana LOZANO M.D. ESTIMATED BLOOD LOSS: Less than 600 mL. ANESTHESIA: Spinal. TISSUE REMOVED OR ALTERED: Placenta. DESCRIPTION OF PROCEDURE: The patient was placed in a supine position, rolled on her right side, prepped and draped in sterile fashion. Pfannenstiel incision was made through an existing Pfannenstiel eschar. The incision extended through subcutaneous tissue and sharp dissection. Fascia was sharply divided. Rectus muscle was bluntly and sharply divided and the parietoperitoneum was entered with sharp dissection. Uterus was nicked in the midline and extended bilaterally. was then delivered through the uterine abdominal incision. Nose and mouth suctioned with bulb syringe. Cord was clamped. was passed from the table. Placenta was manually extracted. had Apgars of 9 and 9, weight 5 pounds 15 ounces. The uterus closed in 2 layers, first a running stitch of 0 Vicryl, a second Lembert stitch imbricating the first layer. Bleeding on the left corner was controlled with figure of eight suture of 0 Vicryl. Hemostasis was noted. The right fallopian tube was then clipped in the proximal portion with a good purchase of tissue being noted. The procedure was repeated on the left, again with a good purchase of tissue being noted and the tubes identified to the fimbria prior to and after occlusion. The fascia was then closed with 0 Vicryl and the skin was closed with subcu absorbable meenu. Her urine remained clear throughout the procedure. She was taken to recovery in good condition. The went to nursery in good condition. DICTATING PHYSICIAN: Diana LOZANO M.D. [id number] [facility]#: [id number] ID: [id number] JOB#: [id number] ACCT: [id number] cc:Diana LOZANO M.D. >
[2017-09-02] MEDS ORDERED: NALBUPHINE HCL INJ 10 MG/1 ML AMPULE ONE (09:03)
[2017-09-02] MEDS ORDERED: (PENDING PHARMACY ID) (Prenatal Vits96/Iron Fum/Folic [Prenatal Tablet] 1 TAB) PO SCH (10:00)
[2017-09-02] MEDS: PRENATAL VITAMIN W DHA CAPSULE PO SCH (11:07)
[2017-09-02] MEDS: DOCUSATE SODIUM 100 MG CAPSULE PO SCH ×2 (11:07→17:35)
[2017-09-02] MEDS: IBUPROFEN 800 MG TABLET PO SCH ×3 (11:08→23:51)
[2017-09-02] MEDS: OXYCODONE-ACETAMINOPHEN 5-325 MG TABLET PO PRN ×3 (16:01→23:53)
[2017-09-03] MEDS: IBUPROFEN 800 MG TABLET PO SCH ×3 (06:11→17:31)
[2017-09-03 06:58] LABS: HEMATOCRIT 27.7 % (36.0-47.0); MEAN CORPUSCULAR HEMOGLOBIN 27.1 pg (27.0-33.4); MEAN CORPUSCULAR HGB CONC 32.4 g/dL (32.0-36.0); MEAN CORPUSCULAR VOLUME 84 fl (80-97); PLATELET COUNT 247 10^3/uL (150-450); RED BLOOD COUNT 3.32 10^6/uL (3.72-5.28); RED CELL DISTRIBUTION WIDTH 15.6 % (11.5-14.0); WHITE BLOOD COUNT 13.4 10^3/uL (4.0-10.5)
[2017-09-03] MEDS: OXYCODONE-ACETAMINOPHEN 5-325 MG TABLET PO PRN ×2 (07:19→19:46)
[2017-09-03] MEDS: DOCUSATE SODIUM 100 MG CAPSULE PO SCH ×2 (09:46→17:30)
[2017-09-03] MEDS: PRENATAL VITAMIN W DHA CAPSULE PO SCH (09:46)
--- NOTE | 2017-09-03 10:12 | PDOC PROGRESS REPORT ---
Subjective-OB Progress Note for:: 09/03/17 Subjective: s/p c/s day #1 denies concerns, voiding without difficulty, lochia is stable, pain well controlled, ambulating, passing gas, tolerating diet. Physical Exam (OB) Vital Signs: Temp Pulse Resp BP Pulse Ox 97.7 F 69 18 119/61 99 09/03/17 07:30 09/03/17 07:30 09/03/17 07:30 09/03/17 07:30 09/03/17 07:30 Intake & Output 09/02/17 09/03/17 09/04/17 06:59 06:59 06:59 Intake Total 2515 Output Total 2725 Balance -210 Weight 99.9 kg - PIH/Pre-Eclampsia Clonus: Negative Headache: Absent Epigastric Pain: No Visual Changes: No - Dressing Removed: Yes Incision: Well Approximated Closure Type: Sutures - Lochia Lochia Amount: Scant < 10 ml Lochia Color: Rubra/Red - Abdomen Description: Soft, Round Hernia Present: No Fundal Description: Firm, Midline Fundal Height: u/u - u/2 Objective-Diagnostic Laboratory: 09/03/17 06:21 09/03/17 06:21 WBC 13.4 H RBC 3.32 L Hgb 9.0 L D Hct 27.7 L MCV 84 MCH 27.1 MCHC 32.4 RDW 15.6 H Plt Count 247 09/01/17 13:40 Vaginal/Anorectal Group B Streptococcus Culture - Final NO GROUP B STREPTOCOCCUS RECOVERED Assessment and Plan(PN) - Assessment and Plan (1) Admission for sterilization Is this a current diagnosis for this admission?: Yes Plan: monitor site (2) Cannabis abuse Is this a current diagnosis for this admission?: Yes 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 (3) Limited care Qualifiers: Trimester: third trimester Qualified Code(s): O09.33 - Supervision of with insufficient care, third trimester Is this a current diagnosis for this admission?: Yes 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 (4) premature rupture of membranes Is this a current diagnosis for this admission?: Yes Plan: n/a delivered (5) Previous delivery, antepartum Is this a current diagnosis for this admission?: Yes Plan: routine pp care (6) Anemia Qualifiers: Anemia type: unspecified type Qualified Code(s): D64.9 - Anemia, unspecified Is this a current diagnosis for this admission?: Yes Plan: ferrous sulfate (7) Gestational diabetes mellitus Qualifiers: Is this a current diagnosis for this admission?: Yes Plan: yearly follow up - Time Spent with Patient Time with patient: Less than 15 minutes Critical Time spent with patient: Less than 15 minutes Medications reviewed and adjusted accordingly: Yes - Disposition Anticipated Discharge: Home Within: within 24 hours
[2017-09-04] MEDS: IBUPROFEN 800 MG TABLET PO SCH ×4 (00:14→17:20)
[2017-09-04] MEDS: OXYCODONE-ACETAMINOPHEN 5-325 MG TABLET PO PRN (00:17)
[2017-09-04] MEDS: PRENATAL VITAMIN W DHA CAPSULE PO SCH (10:21)
[2017-09-04] MEDS: DOCUSATE SODIUM 100 MG CAPSULE PO SCH ×2 (10:21→17:20)
--- NOTE | 2017-09-04 11:14 | PDOC PROGRESS REPORT ---
Subjective-OB Progress Note for:: 09/04/17 Subjective: Doing well, friend at BS, pain under control, baby has jaundice and will not go home today, she will need to go home cause mother has to go back to work, + gas , bottle feeding, breast soft, baby in NICU Physical Exam (OB) Vital Signs: Temp Pulse Resp BP Pulse Ox 98.2 F 90 16 134/82 H 90 L 09/04/17 08:09 09/04/17 08:09 09/04/17 08:09 09/04/17 08:09 09/04/17 08:09 Intake & Output 09/03/17 09/04/17 09/05/17 06:59 06:59 06:59 Intake Total 2515 1400 Output Total 2725 Balance -210 1400 - PIH/Pre-Eclampsia DTR's: 1 + Clonus: Negative Headache: Absent Epigastric Pain: No Visual Changes: No - Dressing Removed: No Incision: Open Closure Type: Surgical Glue - Lochia Lochia Amount: Small 10-25 ml Lochia Color: Rubra/Red - Abdomen Description: Soft, Round Hernia Present: No Fundal Description: Firm, Midline Fundal Height: u/u - u/2 Objective-Diagnostic Laboratory: 09/03/17 06:21 09/01/17 13:40 Vaginal/Anorectal Group B Streptococcus Culture - Final NO GROUP B STREPTOCOCCUS RECOVERED Assessment and Plan(PN) - Assessment and Plan (1) premature rupture of membranes Qualifiers: PROM onset of labor timing: unspecified duration between rupture of membranes and onset of labor Qualified Code(s): O42.919 - premature rupture of membranes, unspecified as to length of time between rupture and onset of labor, unspecified trimester Is this a current diagnosis for this admission?: Yes (2) Cannabis abuse Is this a current diagnosis for this admission?: Yes (3) Limited care Qualifiers: Trimester: third trimester Qualified Code(s): O09.33 - Supervision of with insufficient care, third trimester Is this a current diagnosis for this admission?: Yes (4) Previous delivery, antepartum Is this a current diagnosis for this admission?: Yes (5) Anemia Qualifiers: Anemia type: unspecified type Qualified Code(s): D64.9 - Anemia, unspecified Is this a current diagnosis for this admission?: Yes (6) Gestational diabetes mellitus Qualifiers: Gestational diabetes mellitus control: diet-controlled Is this a current diagnosis for this admission?: Yes - Time Spent with Patient Time with patient: Less than 15 minutes Medications reviewed and adjusted accordingly: Yes - Disposition Anticipated Discharge: Home Within: Other - home today
--- NOTE | 2017-09-04 11:19 | PDOC DISCHARGE SUMMARY ---
Final Diagnosis Discharge Date: 09/04/17 - Final Diagnosis (1) premature rupture of membranes Is this a current diagnosis for this admission?: Yes (2) Cannabis abuse Is this a current diagnosis for this admission?: Yes (3) Limited care Is this a current diagnosis for this admission?: Yes (4) Previous delivery, antepartum Is this a current diagnosis for this admission?: Yes (5) Anemia Is this a current diagnosis for this admission?: Yes (6) Gestational diabetes mellitus Is this a current diagnosis for this admission?: Yes Discharge Data - Discharge Medication Prescriptions: Oxycodone HCl/Acetaminophen [Percocet 5-325 mg Tablet] 1 tab PO Q4HP PRN #30 tablet PRN Reason: Ibuprofen [Motrin 800 mg Tablet] 800 mg PO Q6 #60 tablet Home Medications: Vits96/Iron Fum/Folic [ Tablet] 1 tab PO DAILY 12/16/14 Ibuprofen [Motrin 800 mg Tablet] 800 mg PO Q6 #60 tablet 09/04/17 Oxycodone HCl/Acetaminophen [Percocet 5-325 mg Tablet] 1 tab PO Q4HP PRN #30 tablet 09/04/17 Gestational Age: 34 Reason(s) for Admission: PROM, Gestional Diabetes Procedures: NST, Ultrasound Intrapartum Procedure(s): : Low Cervical, Transverse, Tubal Ligation - [place] Data Baby 1 Female Home with Mother: No Complications: Yes - - Diagnosis Test Laboratory: Temp Pulse Resp BP Pulse Ox 98.2 F 90 16 134/82 H 90 L 09/04/17 08:09 09/04/17 08:09 09/04/17 08:09 09/04/17 08:09 09/04/17 08:09 09/01/17 09/01/17 09/03/17 13:02 13:54 06:21 RBC 4.23 3.32 L Hgb 11.6 L 9.0 L D Hct 34.6 L 27.7 L Urine Opiates Screen NEGATIVE - Discharge information/Instructions Discharge Activity: Activity As Tolerated, No Lifting Over 10 Pounds, No Lifting /Push/Pulling, Pelvic Rest Discharge Diet: As Tolerated, Regular Disposition: HOME, SELF-CARE Follow up with: [facility] in: 1, Weeks
[2017-09-04 15:41] VITALS: BP 127/76
== END 2017-09-04 18:03 | disposition home or self-care (01) | DRG 765 ==
LOC: LC 12:51 → LR 13:47 → 2S 09-02 09:56
PROVIDERS: ADMIT Obstetrics & Gynecology Gynecology; ATTEND Obstetrics & Gynecology Gynecology
PROC: 0UL70CZ Occlusion of Bilateral Fallopian Tubes with Extraluminal Device, Open Approach (ICD-10-PCS; 2017-09-02)
PROC: 10D00Z1 Extraction of Products of Conception, Low, Open Approach (ICD-10-PCS; principal; 2017-09-02 07:30)
DX: O60.14X0 Preterm labor third trimester with preterm delivery third trimester, not applicable or unspecified (principal); O99.324 Drug use complicating childbirth; O24.429 Gestational diabetes mellitus in childbirth, unspecified control; O99.02 Anemia complicating childbirth; D64.9 Anemia, unspecified; F12.90 Cannabis use, unspecified, uncomplicated; Z3A.33 33 weeks gestation of pregnancy; Z37.0 Single live birth
CPT/HCPCS: 1961; 36415; 76815; 80307; 81001; 82962; 83036; 84112; 85025; 85027; 86592; 86850; 86870; 86900; 86901; 87081; 88307; 94760; 94799; 96372; J0290; J0690; J0702; J1364; J1815; J2250; J2300; J2405; J2590; J3010; J3490